=== PATIENT | female | born 1970 | race Caucasian/White ===

== ENCOUNTER 2017-01-02 11:22 | Outpatient (CLI) | payer BC | END 2017-01-02 11:23 | disposition home or self-care (01) | DX: Z79.899 Other long term (current) drug therapy (principal) ==

== ENCOUNTER 2017-07-21 15:47 | Outpatient (CLI) | payer BC ==
[2017-07-22 11:12] LABS: PROGESTERONE <0.5 ng/mL
== END 2017-07-21 15:48 | disposition home or self-care (01) ==
LOC: LAB.WCP 15:47
PROVIDERS: ATTEND Physician Assistant Medical
DX: Z78.0 Asymptomatic menopausal state (principal)
CPT/HCPCS: 36415; 82670; 83001; 84144

== ENCOUNTER 2017-12-28 09:52 | Outpatient (CLI) | payer OTHER | END 2017-12-28 09:53 | disposition home or self-care (01) | LOC: SC 09:52 | PROVIDERS: ATTEND Internal Medicine Pulmonary Disease | DX: G47.33 Obstructive sleep apnea (adult) (pediatric) (principal); E66.01 Morbid (severe) obesity due to excess calories; Z68.43 Body mass index [BMI] 50.0-59.9, adult | CPT/HCPCS: 99203; 99212 ==

== ENCOUNTER 2018-01-18 08:00 | Outpatient (CLI) | payer OTHER | END 2018-01-18 23:59 | LOC: LAB.WCP 08:00 | PROVIDERS: ATTEND Physician Assistant Medical | DX: N39.0 Urinary tract infection, site not specified (principal) | CPT/HCPCS: 87086 ==

== ENCOUNTER 2018-01-28 12:20 | Outpatient (CLI) | payer OTHER ==
[2018-01-28 19:20] LABS: BILIRUBIN,URINE NEGATIVE (NEGATIVE); GLUCOSE, URINE (UA) NEGATIVE (NEGATIVE); KETONES,URINE (UA) NEGATIVE (NEGATIVE); LEUKOCYTE ESTERASE, URINE SMALL (NEGATIVE); NITRITE,URINE NEGATIVE (NEGATIVE); OCCULT BLOOD,URINE NEGATIVE (NEGATIVE); PROTEIN,URINE NEGATIVE (NEGATIVE); UROBILINOGEN,URINE 0.2 (NORMAL) E.U./dL (NORMAL)
[2018-01-28 19:47] LABS: CLARITY,URINE CLEAR (CLEAR)
[2018-01-28 19:48] LABS: BACTERIA,URINE Many /HPF (None Seen); RBC,URINE 3 /HPF (0-5); SQUAMOUS EPITHELIAL CELL,UR MANY Squamous (<= Few)
== END 2018-01-28 12:21 | disposition home or self-care (01) ==
LOC: LAB.WCP 12:20
PROVIDERS: ATTEND Physician Assistant Medical
DX: N39.0 Urinary tract infection, site not specified (principal)
CPT/HCPCS: 81001; 87086

== ENCOUNTER 2018-02-09 11:00 | Outpatient (CLI) | payer OTHER | END 2018-02-09 11:01 | disposition home or self-care (01) | LOC: SC 11:00 | PROVIDERS: ATTEND Nurse Practitioner Family | DX: G47.33 Obstructive sleep apnea (adult) (pediatric) (principal); F32.9 Major depressive disorder, single episode, unspecified | CPT/HCPCS: 99214 ==

== ENCOUNTER 2018-02-10 14:05 | Outpatient (CLI) | payer OTHER | END 2018-02-10 14:06 | disposition home or self-care (01) | LOC: LAB.WCP 14:05 | PROVIDERS: ATTEND Family Medicine | DX: N39.0 Urinary tract infection, site not specified (principal) | CPT/HCPCS: 87086 ==

== ENCOUNTER 2018-02-15 08:45 | Outpatient (CLI) | payer OTHER ==
[2018-02-15 09:23] LABS: BASOPHILS % (AUTO) 0.3 %; EOSINOPHILS # (AUTO) 0.1 10^3/uL (0.0-0.7); EOSINOPHILS % (AUTO) 2.8 %; HGB - HEMOGLOBIN 13.6 g/dL (12.0-16.0); LYMPHOCYTES # (AUTO) 0.7 10^3/uL (1.5-3.5); LYMPHOCYTES % (AUTO) 13.6 %; MEAN CORPUSCULAR HEMOGLOBIN 32.5 pg (27.0-31.0); MEAN CORPUSCULAR HGB CONC 34.8 g/dL (32.0-36.0); MEAN CORPUSCULAR VOLUME 93.3 fL (81.0-99.0); MEAN PLATELET VOLUME 7.6 fL (7.9-10.8); MONOCYTES # (AUTO) 0.5 10^3/uL (0.0-1.0); MONOCYTES % (AUTO) 10.1 %; NEUTROPHILS # (AUTO) 3.7 10^3/uL (1.5-6.6); NEUTROPHILS % (AUTO) 73.2 %; PLT - PLATELET COUNT 197 10^3/uL (130-450); RED BLOOD COUNT 4.19 10^6/uL (4.20-5.40); RED CELL DISTRIBUTION WIDTH 12.7 % (12.0-15.0); WHITE BLOOD COUNT 5.1 x10^3/uL (4.8-10.8)
[2018-02-15 09:44] LABS: ALBUMIN 4.2 g/dL (3.2-5.5); ALBUMIN/GLOBULIN RATIO 1.3 (1.0-2.2); ALKALINE PHOSPHATASE 66 IU/L (42-121); ALT ALANINE AMINOTRANSFERASE 33 IU/L (10-60); AST ASPARTATE AMINOTRANSFERASE 22 IU/L (10-42); BILIRUBIN,TOTAL 0.9 mg/dL (0.2-1.0); BUN - BLOOD UREA NITROGEN 13 mg/dL (6-20); CALCIUM 8.8 mg/dL (8.5-10.3); CARBON DIOXIDE - CO2 22 mmol/L (21-32); CHLORIDE 102 mmol/L (101-111); CHOL/HDL RATIO 5.5 (<4.4); CHOLESTEROL 176 mg/dL; CREATININE 0.9 mg/dL (0.4-1.0); GFR - MDRD 67 (>89); GLUCOSE 128 mg/dL (70-100); HB2 TOTAL 14.9 g/dL; HDL CHOLESTEROL 32 mg/dL; HEMOGLOBIN A1C 0.62 g/dL; LDL CHOLESTEROL,CALCULATED 109 mg/dL; LDL/HDL RATIO 3.4 (<4.4); SODIUM 134 mmol/L (135-145); TOTAL PROTEIN 7.5 g/dL (6.7-8.2); VLDL CHOLESTEROL 35 mg/dL
[2018-02-15 09:54] LABS: THYROID STIMULATING HORMONE 2.96 uIU/mL (0.34-5.60)
[2018-02-15 09:56] LABS: FREE T4 (FREE THYROXINE) 0.69 ng/dL (0.58-1.64)
[2018-02-15 10:20] LABS: LITHIUM 0.34 mmol/L
== END 2018-02-15 08:46 | disposition home or self-care (01) ==
LOC: LAB 08:45
PROVIDERS: ATTEND Psychiatry & Neurology Psychiatry
DX: Z79.899 Other long term (current) drug therapy (principal)
CPT/HCPCS: 36415; 80053; 80061; 80178; 82607; 82728; 83036; 83721; 84439; 84443; 85025

== ENCOUNTER 2018-02-15 09:55 | Outpatient (CLI) | payer OTHER | END 2018-02-15 09:56 | disposition home or self-care (01) | LOC: LAB.WCP 09:55 | PROVIDERS: ATTEND Physician Assistant Medical | DX: N39.0 Urinary tract infection, site not specified (principal) | CPT/HCPCS: 87086 ==

== ENCOUNTER 2018-02-15 13:25 | Outpatient (CLI) | payer OTHER ==
[2018-02-15] MEDS ORDERED: IOPAMIDOL-300 50 ML VIAL ONE (13:50)
[2018-02-15] MEDS ORDERED: IOPAMIDOL-300 100 ML VIAL ONE (13:51)
[2018-02-15] MEDS ORDERED: IOPAMIDOL-300 100 ML VIAL IVP ONE (17:18)
[2018-02-15] MEDS ORDERED: IOPAMIDOL-300 50 ML VIAL PO ONE (17:18)
--- NOTE | 2018-02-15 17:25 | CT Report ---
CT ABDOMEN AND PELVIS WITH CONTRAST: 02/15/2018 CLINICAL INDICATION: Right lower quadrant pain. TECHNIQUE: Axial CT images of the abdomen and pelvis were obtained with 100 mL Isovue 300 intravenously as well as oral contrast. In accordance with CT protocol optimization, one or more of the following dose reduction techniques were utilized for this exam: Automated exposure control, adjustment of mA and/or KV based on patient size, or use of iterative reconstructive technique. FINDINGS: Limited evaluation of the lung bases is unremarkable. ABDOMEN: The liver demonstrates diffuse decrease in attenuation, compatible with fatty infiltration. The gallbladder is not dilated. The spleen, pancreas, kidneys and adrenal glands are unremarkable. No bowel dilatation, free gas, or free fluid is present. No abdominal adenopathy is seen. PELVIS: The appendix is seen in the right lower quadrant, and is normal in caliber. The pelvic organs appear unremarkable. No pelvic adenopathy or free fluid is present. Osseous structures are unremarkable. IMPRESSION: FATTY INFILTRATION OF THE LIVER. NORMAL APPENDIX. TD: 02/15/2018 15:10
== END 2018-02-15 13:26 | disposition home or self-care (01) ==
LOC: DI 13:25
PROVIDERS: ATTEND Physician Assistant Medical
DX: R10.31 Right lower quadrant pain (principal); K76.0 Fatty (change of) liver, not elsewhere classified; N39.0 Urinary tract infection, site not specified; Z79.899 Other long term (current) drug therapy
CPT/HCPCS: 36415; 74177; 80053; 80061; 80178; 82607; 82728; 83036; 84439; 84443; 85025; 87086; Q9967; 83721

== ENCOUNTER 2018-06-14 08:00 | Outpatient (CLI) | payer OTHER ==
[2018-06-14 19:23] LABS: ALBUMIN 4.4 g/dL (3.2-5.5); ALBUMIN/GLOBULIN RATIO 1.5 (1.0-2.2); BILIRUBIN,TOTAL 0.7 mg/dL (0.2-1.0); CALCIUM 9.5 mg/dL (8.5-10.3); CREATININE 0.8 mg/dL (0.4-1.0); TOTAL PROTEIN 7.4 g/dL (6.7-8.2)
[2018-06-14 20:05] LABS: HB2 TOTAL 14.5 g/dL; HEMOGLOBIN A1C 0.58 g/dL; HEMOGLOBIN A1C % 5.8 % (4.6-6.2)
== END 2018-06-14 08:01 | disposition home or self-care (01) ==
LOC: LAB.WCP 08:00
PROVIDERS: ATTEND Physician Assistant Medical
DX: R73.9 Hyperglycemia, unspecified (principal)
CPT/HCPCS: 36415; 80053; 83036

== ENCOUNTER 2019-01-18 08:00 | Outpatient (CLI) | payer OTHER ==
[2019-01-18 19:16] LABS: BASOPHILS % (AUTO) 0.3 %; EOSINOPHILS # (AUTO) 0.2 10^3/uL (0.0-0.7); EOSINOPHILS % (AUTO) 3.4 %; LYMPHOCYTES # (AUTO) 1.8 10^3/uL (1.5-3.5); LYMPHOCYTES % (AUTO) 30.9 %; MEAN CORPUSCULAR HEMOGLOBIN 32.2 pg (27.0-31.0); MEAN CORPUSCULAR HGB CONC 33.4 g/dL (32.0-36.0); MEAN CORPUSCULAR VOLUME 96.4 fL (81.0-99.0); MEAN PLATELET VOLUME 8.3 fL (7.9-10.8); MONOCYTES # (AUTO) 0.5 10^3/uL (0.0-1.0); MONOCYTES % (AUTO) 8.5 %; NEUTROPHILS # (AUTO) 3.3 10^3/uL (1.5-6.6); NEUTROPHILS % (AUTO) 56.9 %; PLT - PLATELET COUNT 218 10^3/uL (130-450); RED BLOOD COUNT 4.03 10^6/uL (4.20-5.40); RED CELL DISTRIBUTION WIDTH 12.6 % (12.0-15.0); WHITE BLOOD COUNT 5.9 x10^3/uL (4.8-10.8)
[2019-01-18 19:36] LABS: LITHIUM 0.32 mmol/L
[2019-01-18 19:47] LABS: ALBUMIN/GLOBULIN RATIO 1.2 (1.0-2.2); ALKALINE PHOSPHATASE 59 IU/L (42-121); ALT ALANINE AMINOTRANSFERASE 30 IU/L (10-60); AST ASPARTATE AMINOTRANSFERASE 26 IU/L (10-42); BILIRUBIN,TOTAL 0.5 mg/dL (0.2-1.0); BUN - BLOOD UREA NITROGEN 18 mg/dL (6-20); CALCIUM 9.1 mg/dL (8.5-10.3); CARBON DIOXIDE - CO2 25 mmol/L (21-32); CHLORIDE 107 mmol/L (101-111); CHOLESTEROL 194 mg/dL; CREATININE 0.8 mg/dL (0.4-1.0); GFR - MDRD 76 (>89); GLUCOSE 142 mg/dL (70-100); HDL CHOLESTEROL 39 mg/dL; LDL CHOLESTEROL,CALCULATED 90 mg/dL; LDL/HDL RATIO 2.3 (<4.4); SODIUM 141 mmol/L (135-145); TOTAL PROTEIN 7.3 g/dL (6.7-8.2); VLDL CHOLESTEROL 65 mg/dL
[2019-01-18 19:57] LABS: THYROID STIMULATING HORMONE 1.74 uIU/mL (0.34-5.60)
[2019-01-18 19:58] LABS: FREE T4 (FREE THYROXINE) 0.78 ng/dL (0.58-1.64)
[2019-01-18 20:03] LABS: FERRITIN 79.1 ng/mL (11.0-306.8)
[2019-01-18 20:11] LABS: HB2 TOTAL 13.6 g/dL; HEMOGLOBIN A1C 0.68 g/dL; HEMOGLOBIN A1C % 6.7 % (4.6-6.2)
== END 2019-01-18 08:01 | disposition home or self-care (01) ==
LOC: LAB.WCP 08:00
PROVIDERS: ATTEND Psychiatry & Neurology Psychiatry
DX: Z98.84 Bariatric surgery status (principal); Z94.84 Stem cells transplant status; Z79.899 Other long term (current) drug therapy
CPT/HCPCS: 36415; 80053; 80061; 80178; 82607; 82728; 83036; 83721; 84439; 84443; 85025

== ENCOUNTER 2019-01-21 08:00 | Outpatient (CLI) | payer OTHER | END 2019-01-21 23:59 | disposition home or self-care (01) | LOC: LAB.N 08:00 | DX: M10.00 Idiopathic gout, unspecified site (principal) | CPT/HCPCS: 36415; 84550 ==

== ENCOUNTER 2019-02-01 08:00 | Outpatient (CLI) | payer OTHER | END 2019-02-01 23:59 | disposition home or self-care (01) | LOC: LAB.WCP 08:00 | PROVIDERS: ATTEND Physician Assistant Medical | DX: R06.00 Dyspnea, unspecified (principal) | CPT/HCPCS: 36415; 85379 ==

== ENCOUNTER 2019-02-02 10:04 | Emergency (ER) | payer OTHER ==
[2019-02-02 10:49] LABS: BASOPHILS % (AUTO) 0.3 %; EOSINOPHILS # (AUTO) 0.2 10^3/uL (0.0-0.7); EOSINOPHILS % (AUTO) 1.6 %; HGB - HEMOGLOBIN 11.9 g/dL (12.0-16.0); LYMPHOCYTES # (AUTO) 1.8 10^3/uL (1.5-3.5); LYMPHOCYTES % (AUTO) 17.3 %; MEAN CORPUSCULAR VOLUME 94.1 fL (81.0-99.0); MONOCYTES # (AUTO) 1.1 10^3/uL (0.0-1.0); NEUTROPHILS # (AUTO) 7.5 10^3/uL (1.5-6.6); NEUTROPHILS % (AUTO) 70.8 %; PLT - PLATELET COUNT 219 10^3/uL (130-450); RED BLOOD COUNT 3.71 10^6/uL (4.20-5.40); RED CELL DISTRIBUTION WIDTH 12.4 % (12.0-15.0); WHITE BLOOD COUNT 10.6 x10^3/uL (4.8-10.8)
[2019-02-02 11:04] LABS: ALBUMIN 3.7 g/dL (3.2-5.5); BILIRUBIN,TOTAL 0.8 mg/dL (0.2-1.0); CALCIUM 9.3 mg/dL (8.5-10.3); CREATININE 0.8 mg/dL (0.4-1.0); TOTAL PROTEIN 7.4 g/dL (6.7-8.2)
--- NOTE | 2019-02-02 11:19 | XRAY Report ---
Reason: chest pain Procedure Date: 02/02/2019 Accession Number: [id number] / [id number] Procedure: XR - Chest 1 View X-Ray CPT Code: 39109 FULL RESULT: EXAM: CHEST RADIOGRAPHY EXAM DATE: 02/02/2019 10:59 AM. CLINICAL HISTORY: Chest pain. COMPARISON: CHEST 2 VIEW PA/LAT 09/03/2016 11:00 AM. TECHNIQUE: 1 view. FINDINGS: Lungs/Pleura: No focal opacities evident. No pleural effusion. No pneumothorax. Mediastinum: Given limitations of AP portable technique the cardiomediastinal silhouette is likely unchanged. Other: None. IMPRESSION: Limited examination with no acute cardiopulmonary abnormality detected. Apparent cardiomegaly is felt to be due to AP technique. RADIA
--- NOTE | 2019-02-02 12:25 | ED Physician Documentation ---
PD HPI CHEST PAIN - Stated complaint Stated Complaint: BACK/SHOULDER PX - Chief complaint Chief Complaint: Cardiac - History obtained from History obtained from: Patient - History of Present Illness Timing - onset: How many days ago (3) Timing - onset during: Rest Timing - duration: Days (3) Timing - details: Abrupt onset, Now resolved Quality: Pressure, Sharp, Throbbing Location: Substernal, Left chest Radiation: Back Improved by: Rest Worsened by: Inspiration Associated symptoms: Shortness of air, Other (felt that her lungs might explode if she took too deep of a breath.). No: Diaphoresis, Nausea, Vomiting, Feeling faint / dizzy, General Weakness, Palpitations, Cough Recently seen: Clinic - Additional information Additional information: 48-year-old female reports that 2 nights ago she was in bed asleep had a pain in her chest or in her back on the left side around the rhomboid area and down in the lower back and she felt that her lungs might explode if she took a deep breath. She states she was not able to take a deep breath secondary to pain. These pains resolved and she relates that they lasted about 5 to 6 minutes at a time when it happened. She subsequently had resolution of her pain she went into see her doctor she had a d-dimer done which was negative and she has had recurrence of the pain again last night and she had 3 episodes this time substernal. Again episodes lasting 5 to 6 minutes. She gives a hears history of travel to [place] about 1 month ago. She also gives history that she had a elevated resting heart rate yesterday. Review of Systems Constitutional: denies: Fever Eyes: denies: Decreased vision Ears: denies: Ear pain Nose: denies: Congestion Throat: denies: Sore throat Cardiac: reports: Chest pain / pressure. denies: Palpitations, Pedal edema, Calf pain Respiratory: reports: Dyspnea. denies: Cough, Wheezing GI: denies: Abdominal Pain, Nausea, Vomiting : denies: Dysuria, Frequency PD PAST MEDICAL HISTORY - Past Medical History Past Medical History: Yes Endocrine/Autoimmune: Type 2 diabetes FAMILY PRACTICE MEDICAL DOCTOR: Other Psych: Depression Other Past Medical History: pcos - Past Surgical History Past Surgical History: Yes Ortho: Knee replacement /FAMILY PRACTICE MEDICAL DOCTOR: Endometrial ablation, Dilation and currettage - Present Medications Home Medications: Ambulatory Orders Medication Instructions Recorded Confirmed Levothyroxine [Synthroid] 50 mcg PO DAILY 06/25/14 05/08/19 lamoTRIgine [Lamictal] 200 mg PO DAILY 03/22/14 02/02/19 Venlafaxine HCl [Effexor Xr] 300 mg PO DAILY 03/24/14 02/02/19 traZODone [Desyrel] 200 mg PO QPM 03/24/14 02/02/19 Aripiprazole [Abilify] 2 mg PO DAILY 02/02/19 02/02/19 Azithromycin [Zithromax] 250 mg PO DAILY #6 tablet 02/02/19 Colchicine 0.6 mg PO DAILY 02/02/19 02/02/19 Indomethacin [Indocin] 25 mg PO DAILY 02/02/19 02/02/19 Metformin HCl 1,000 mg PO BID 02/02/19 02/02/19 Nitrofurantoin Monohyd/M-Cryst 100 mg PO DAILY 02/02/19 02/02/19 [Macrobid 100 mg Capsule] Prazosin HCl 1 tab PO DAILY 02/02/19 02/02/19 Prazosin HCl 1 tab PO DAILY PM 02/02/19 02/02/19 - Allergies Allergies/Adverse Reactions: Allergies Allergy/AdvReac Type Severity Reaction Status Date / Time Penicillins Allergy Severe Respiratory Verified 02/02/19 10:16 shrimp Allergy Hives Verified 02/02/19 10:33 strawberry Allergy Rash Verified 02/02/19 10:33 montelukast sodium * AdvReac Mild other Verified 02/02/19 10:16 [From [facility]] - Social History Does the pt smoke?: No Smoking Status: Never smoker Does the pt drink ETOH?: No Does the pt have substance abuse?: No - Immunizations Immunizations are current?: Yes - POLST Patient has POLST: No PD ED PE NORMAL - Vitals Vital signs reviewed: Yes (hypertensive ) - General General: Alert and oriented X 3, No acute distress, Well developed/nourished - HEENT HEENT: Atraumatic, PERRL, EOMI - Neck Neck: Supple, no meningeal sign - Cardiac Cardiac: RRR, No murmur - Respiratory Respiratory: No respiratory distress, Clear bilaterally, Other (no chest wall tenderness) - Abdomen Abdomen: Soft, Non tender - Back Back: No CVA TTP, No spinal TTP - Derm Derm: Normal color, Warm and dry, No rash - Extremities Extremities: No deformity, No edema - Neuro Neuro: Alert and oriented X 3, remote sensing analyst 2-12 intact, No motor deficit, No sensory deficit, Normal speech Eye Opening: Spontaneous Motor: Obeys Commands Verbal: Oriented GCS Score: 15 - Psych Psych: Normal mood, Normal affect Results - Vitals Vitals: Vital Signs - 24 hr 02/02/19 02/02/19 02/02/19 10:13 10:43 11:24 Temperature 36.4 C L Heart Rate 90 77 77 Respiratory 14 14 12 Rate Blood Pressure 140/80 H 135/77 H 148/84 H O2 Saturation 96 95 96 Oxygen O2 Source Room air - EKG (time done) 1026 Rate: Rate (enter#) (75) Ischemia: Normal ST segments Other comments: Other comments (early transition) Compare to prior EKG: Old EKG unavailable Computer interpretation: Agree with computer - Labs Labs: Laboratory Tests 02/02/19 02/02/19 02/02/19 10:35 10:35 10:35 WBC 10.6 RBC 3.71 L Hgb 11.9 L Hct 34.9 L MCV 94.1 MCH 32.0 H MCHC 34.0 RDW 12.4 Plt Count 219 MPV 8.0 Neut # (Auto) 7.5 H Lymph # (Auto) 1.8 [place] # (Auto) 1.1 H Eos # (Auto) 0.2 Baso # (Auto) 0.0 Absolute Nucleated RBC 0.00 Nucleated RBC % 0.0 Sodium 137 Potassium 3.8 Chloride 101 Carbon Dioxide 24 Anion Gap 12.0 BUN 16 Creatinine 0.8 Estimated GFR (MDRD) 76 L Glucose 221 H Calcium 9.3 Total Bilirubin 0.8 AST 25 ALT 34 Alkaline Phosphatase 75 Troponin I < 0.04 Total Protein 7.4 Albumin 3.7 Globulin 3.7 Albumin/Globulin Ratio 1.0 Lipase 22 - Rads (name of study) chest Radiology: Prelim report reviewed (Impression: Limited examination with no acute cardiopulmonary abnormality detected apparent cardiomegaly is felt to be due to AP technique), EMP read indepedently, See rad report pulmonary angiogram Radiology: Prelim report reviewed (Impression: Consolidation in the left upper lobe. No pulmonary and was not.), EMP read indepedently, See rad report Procedures - IVC sono (time) 1220 Bedside IVC sono: IVC measures (cm) (2.04), Euvolemia PD MEDICAL DECISION MAKING - ED course Complexity details: reviewed results, re-evaluated patient, considered differential, d/w patient ED course: 48-year-old female with intermittent chest pain has a dense infiltrate on CT examination of the chest. She is administered Rocephin a gram IV. Departure - Departure Disposition: 01 Home, Self Care Clinical Impression: Pneumonia Qualifiers: Pneumonia type: due to unspecified organism Laterality: left Lung location: upper lobe of lung Qualified Code(s): J18.1 - Lobar pneumonia, unspecified organism Condition: Stable Instructions: ED Pneumonia Adult Follow-Up: Nancy Suarez PA-C [Primary Care Provider] - Prescriptions: Azithromycin [Zithromax] 250 mg PO DAILY #6 tablet Forms: Activity restrictions
[2019-02-02] MEDS ORDERED: IOVERSOL 320 100 ML VIAL IVP ONE ×2 (13:08→14:10)
--- NOTE | 2019-02-02 13:55 | CT Report ---
Reason: dyspnea, chest pain tachy Procedure Date: 02/02/2019 Accession Number: [id number] / [id number] Procedure: CT - ANGIO CHEST W/WO CPT Code: FULL RESULT: EXAM: CT ANGIOGRAM CHEST EXAM DATE: 02/02/2019 01:27 PM. CLINICAL HISTORY: Dyspnea, chest pain, tachycardia. COMPARISON: None. TECHNIQUE: Routine helical imaging was performed through the chest in the pulmonary arterial phase. IV Contrast: ISOVUE 300 80mL. Reconstructions: Coronal 3-D MIP reconstructions.Sagittal and coronal. In accordance with CT protocol optimization, one or more of the following dose reduction techniques were utilized for this exam: automated exposure control, adjustment of mA and/or KV based on patient size, or use of iterative reconstructive technique. FINDINGS: Pulmonary Arteries: Diagnostic quality: Adequate through the segmental arteries. No evidence for acute or chronic pulmonary emboli. RV/LV is within normal limits. There is no interventricular septal bowing. There is no reflux of contrast material in the IVC. Lungs/Pleura: There is consolidation in the posterior segment of the left upper lobe. Remaining lungs are clear. No pleural effusion or pneumothorax. Mediastinum: Normal. No cardiac enlargement or adenopathy. Thoracic Aorta: Unremarkable. Upper Abdomen: Status post gastric surgery. Splenomegaly. Other: None. IMPRESSION: Consolidation in the left upper lobe. No pulmonary embolism. RADIA
[2019-02-02] MEDS ORDERED: cefTRIAXone 1 GM in SODIUM CHLORIDE 0.9% MINIBAG 100 ML IV STA (14:27)
[2019-02-02 15:18] VITALS: BP 118/80
== END 2019-02-02 15:28 | disposition home or self-care (01) ==
LOC: ED 10:04
DX: J18.1 Lobar pneumonia, unspecified organism (principal); E11.9 Type 2 diabetes mellitus without complications; Z79.84 Long term (current) use of oral hypoglycemic drugs
CPT/HCPCS: 36415; 71045; 71275; 80053; 83690; 84484; 85025; 93005; 96365; 99284; Q9967

== ENCOUNTER 2019-03-01 17:55 | Outpatient (CLI) | payer OTHER ==
--- NOTE | 2019-03-02 10:59 | XRAY Report ---
Reason: PHEUMONIA Procedure Date: 03/01/2019 Accession Number: [id number] / [id number] Procedure: XR - Chest 2 View X-Ray CPT Code: 56078 FULL RESULT: EXAM: CHEST RADIOGRAPHY EXAM DATE: 03/01/2019 06:06 PM. CLINICAL HISTORY: Pneumonia. COMPARISON: CHEST 1 VIEW 02/02/2019 10:46 AM. CHEST ANGIO 02/02/2019 1:18 PM. TECHNIQUE: 2 views. FINDINGS: Lungs/Pleura: Interval decrease in opacities in the left lingular distribution, near resolution. No new airspace disease is detected. No sizable pleural effusion or pneumothorax. Mediastinum: Heart and mediastinal contours are unremarkable. Other: None. IMPRESSION: Interval improvement in previously seen airspace disease. RADIA
== END 2019-03-01 17:56 | disposition home or self-care (01) ==
LOC: DI 17:55
PROVIDERS: ATTEND Physician Assistant Medical
DX: J18.9 Pneumonia, unspecified organism (principal)
CPT/HCPCS: 71046

== ENCOUNTER 2019-04-27 11:42 | Outpatient (CLI) | payer OTHER ==
[2019-04-27 19:04] LABS: ALBUMIN/GLOBULIN RATIO 1.4 (1.0-2.2); ALKALINE PHOSPHATASE 58 IU/L (42-121); ALT ALANINE AMINOTRANSFERASE 24 IU/L (10-60); AST ASPARTATE AMINOTRANSFERASE 19 IU/L (10-42); BILIRUBIN,TOTAL 0.6 mg/dL (0.2-1.0); BUN - BLOOD UREA NITROGEN 10 mg/dL (6-20); CALCIUM 9.6 mg/dL (8.5-10.3); CARBON DIOXIDE - CO2 25 mmol/L (21-32); CHLORIDE 105 mmol/L (101-111); CHOL/HDL RATIO 4.5 (<4.4); CHOLESTEROL 193 mg/dL; CREATININE 0.8 mg/dL (0.4-1.0); GFR - MDRD 76 (>89); GLUCOSE 110 mg/dL (70-100); HDL CHOLESTEROL 43 mg/dL; LDL CHOLESTEROL,CALCULATED 109 mg/dL; LDL/HDL RATIO 2.5 (<4.4); SODIUM 141 mmol/L (135-145); TOTAL PROTEIN 6.9 g/dL (6.7-8.2); VLDL CHOLESTEROL 41 mg/dL
[2019-04-27 19:07] LABS: HB2 TOTAL 13.1 g/dL; HEMOGLOBIN A1C 0.65 g/dL; HEMOGLOBIN A1C % 6.7 % (4.6-6.2)
== END 2019-04-27 11:43 | disposition home or self-care (01) ==
LOC: LAB.WCP 11:42
PROVIDERS: ATTEND Physician Assistant Medical
DX: E11.9 Type 2 diabetes mellitus without complications (principal)
CPT/HCPCS: 36415; 80053; 80061; 83036; 83721

== ENCOUNTER 2019-07-27 08:00 | Outpatient (CLI) | payer OTHER ==
[2019-07-27 13:20] LABS: ALBUMIN 4.3 g/dL (3.2-5.5); ALBUMIN/GLOBULIN RATIO 1.4 (1.0-2.2); ALKALINE PHOSPHATASE 62 IU/L (42-121); ALT ALANINE AMINOTRANSFERASE 25 IU/L (10-60); AST ASPARTATE AMINOTRANSFERASE 21 IU/L (10-42); BILIRUBIN,TOTAL 0.9 mg/dL (0.2-1.0); BUN - BLOOD UREA NITROGEN 15 mg/dL (6-20); CALCIUM 9.4 mg/dL (8.5-10.3); CARBON DIOXIDE - CO2 29 mmol/L (21-32); CHLORIDE 102 mmol/L (101-111); CHOL/HDL RATIO 5.4 (<4.4); CHOLESTEROL 227 mg/dL; CREATININE 0.8 mg/dL (0.4-1.0); GFR - MDRD 76 (>89); GLUCOSE 218 mg/dL (70-100); HDL CHOLESTEROL 42 mg/dL; SODIUM 138 mmol/L (135-145); TOTAL PROTEIN 7.3 g/dL (6.7-8.2)
[2019-07-27 13:39] LABS: HB2 TOTAL 14.5 g/dL; HEMOGLOBIN A1C 0.91 g/dL; HEMOGLOBIN A1C % 7.9 % (4.6-6.2)
[2019-07-27 13:47] LABS: LDL CHOLESTEROL,DIRECT 128 mg/dL
== END 2019-07-27 23:59 | disposition home or self-care (01) ==
LOC: LAB.WCP 08:00
PROVIDERS: ATTEND Physician Assistant Medical
DX: E11.9 Type 2 diabetes mellitus without complications (principal); M10.9 Gout, unspecified
CPT/HCPCS: 36415; 80053; 80061; 83036; 83721; 84550

== ENCOUNTER 2019-10-25 12:08 | Outpatient (CLI) | payer OTHER ==
[2019-10-25 18:59] LABS: BASOPHILS % (AUTO) 0.5 %; EOSINOPHILS # (AUTO) 0.1 10^3/uL (0.0-0.7); EOSINOPHILS % (AUTO) 1.8 %; HGB - HEMOGLOBIN 13.9 g/dL (12.0-16.0); LYMPHOCYTES # (AUTO) 1.8 10^3/uL (1.5-3.5); LYMPHOCYTES % (AUTO) 23.4 %; MEAN CORPUSCULAR HEMOGLOBIN 31.9 pg (27.0-31.0); MEAN CORPUSCULAR HGB CONC 32.8 g/dL (32.0-36.0); MEAN CORPUSCULAR VOLUME 97.2 fL (81.0-99.0); MEAN PLATELET VOLUME 9.9 fL (7.9-10.8); MONOCYTES # (AUTO) 0.6 10^3/uL (0.0-1.0); MONOCYTES % (AUTO) 7.8 %; NEUTROPHILS # (AUTO) 5.2 10^3/uL (1.5-6.6); NEUTROPHILS % (AUTO) 66.1 %; PLT - PLATELET COUNT 278 10^3/uL (130-450); RED BLOOD COUNT 4.36 10^6/uL (4.20-5.40); WHITE BLOOD COUNT 7.8 x10^3/uL (4.8-10.8)
[2019-10-25 19:36] LABS: FERRITIN 74.3 ng/mL (11.0-306.8)
== END 2019-10-25 23:59 | disposition home or self-care (01) ==
LOC: LAB.WCP 12:08
PROVIDERS: ATTEND Physician Assistant Medical
DX: R53.82 Chronic fatigue, unspecified (principal)
CPT/HCPCS: 36415; 82306; 82607; 82728; 84443; 84481; 85025

== ENCOUNTER 2019-11-01 08:00 | Outpatient (CLI) | payer OTHER ==
[2019-11-01 19:05] LABS: HB2 TOTAL 13.4 g/dL; HEMOGLOBIN A1C 0.66 g/dL; HEMOGLOBIN A1C % 6.7 % (4.6-6.2)
[2019-11-01 19:14] LABS: BUN - BLOOD UREA NITROGEN 16 mg/dL (6-20); CALCIUM 9.3 mg/dL (8.5-10.3); CARBON DIOXIDE - CO2 26 mmol/L (21-32); CHLORIDE 104 mmol/L (101-111); CHOL/HDL RATIO 6.2 (<4.4); CHOLESTEROL 229 mg/dL; CREATININE 0.8 mg/dL (0.4-1.0); GFR - MDRD 76 (>89); GLUCOSE 156 mg/dL (70-100); HDL CHOLESTEROL 37 mg/dL; LDL CHOLESTEROL,CALCULATED 128 mg/dL; LDL/HDL RATIO 3.5 (<4.4); SODIUM 140 mmol/L (135-145); VLDL CHOLESTEROL 64 mg/dL
== END 2019-11-01 23:59 | disposition home or self-care (01) ==
LOC: LAB.WCP 08:00
PROVIDERS: ATTEND Physician Assistant Medical
DX: E11.9 Type 2 diabetes mellitus without complications (principal)
CPT/HCPCS: 36415; 80048; 80061; 83036; 83721

== ENCOUNTER 2019-11-22 13:12 | Outpatient (CLI) | payer OTHER ==
[2019-11-22 14:18] VITALS: BP 120/74
--- NOTE | 2019-11-22 14:18 | SLEEP CARE CONSULTATION ---
Information from patient questionnaire entered by Georgette Vieira. I have reviewed and concur with the information entered by Georgette Vieira. This document represents the service I personally performed and the decisions made by me, Catherine Sawyer RN, MSN, [employer]. History of Present Illness Previous diagnosis: Mild, Obstructive Sleep Apnea-Hypopnea Syndrome AHI: 9.5 Reason for follow up: annual Equipment type: CPAP Equipment obtained from: [employer] Mask style: Full face Backup mask available: Yes Last cushion change: 6 weeks Prior sleep studies: Yes CPAP Compliance Data - Data Reviewed with Patient Average duration of nightly device use: 7h 37m Compliance rate %: 93 Current pressure setting (cmH2O): 6-12 Average residual AHI: 1.0 Average large leak: 11.2 liters per minute Subjective Patient concerns: denies: aerophagia, mask discomfort, air blowing in eyes, mask leak noise, condensation in mask/hose, nasal congestion, dry mouth, nose, throat, epistaxis, other Observed to snore while using device: No Current pressure setting perceived as: comfortable On therapy, patient: denies: awakening more refreshed (no difference ), being more awake and alert during the day, more rested overall, drowsiness while driving, other Initial [place] Sleepiness Scale score: 4 Current [place] Sleepiness Scale score: 3 Allergies and Home Medications Known drug allergies: Yes (see list ) Home medication list reviewed: Yes (see changes ) Allergy and home medication list: Medication Name (generic/name brand) Strength & Dosage Effexor XR 150mg cap two daily Synthroid 50mcg tab one and one half daily Lamictal 200mg tab one daily at bedtime Trazodone HCL 150mg tab one daily at bedtime Abilify 7.5mg tab one and one half daily Epipen 2-Jarocho 0.3MG/0.3ML Use as needed for allergic reaction Metformin HCL 500mg tab two twice daily [place] Carbonate 300mg cap one twice daily Ventolin HFA 108 (90 base) MCG/ACT Inhale two actuations q4h PRN wheeze Prazosin HCL 8mg tab one daily [place] 3 daily Ritalin 20mg bid po. Review of Systems Review of systems same as previous: No (new diagnosis of diabetes and elevated cholesterol ) Physical Exam Blood Pressure: 120/74 Cuff size: long Heart Rate: 96 O2 Saturation: 97 Height: 5 ft 4 in Weight: 282 lb Weight change since last visit: lost 12 pounds Body Mass Index: 48.4 BMI Classification: Morbidly Obese Impression and Plan 1. Obstructive Sleep Apnea-Hypopnea Syndrome, mild , with good treatment compliance and good apnea control. On CPAP therapy, the patient has noted no change. To reduce mask leaks, she is advised to change mask cushion more frequently. Mask leaks predominately from when patient sleeps on their side can be reduced by using a CPAP pillow. A CPAP pillow sample was shown. This and other styles can be purchased online.Patient has lost weight and was praised for her effort. Currently patients is morbidly obese and her BMI is 48.4. She has seen a pie cutter and taking pre diabetes class and modifying diet. She is also exercising and considering water aerobics. I counseled how obesity increases the risk of apnea, CPAP pressure requirements and overall health risks especially cardiovascular and diabetes. Thus patient is advised to continue to lose weight. The BMI chart was reviewed. The patient would like to reduce to 180 pounds bringing their BMI down to about 29-30. Patient encouraged to discuss their weight loss goals with their PCP. Symptoms to report for additional pressure adjustment discussed. Patient's apnea severity and rationale for treatment to reduce apnea, improve sleep quality and reduce cardiovascular and cerebrovascular events was reviewed. I also reviewed the benefit of consistent device use of CPAP for hypertension, diabetes, depression/anxiety and attention deficit. 2. Insomnia, related to difficulty to fall asleep intermittently and to maintain sleep. She reports that about 10 times a month it is difficult to fall asleep. She wakes 2-3 times a night, sometimes can fall back to sleep and sometimes not. Her wake time varies from 5:30 to 11am on work days and she feels she can sleep even longer on days off. Her usual bedtime about midnight. Patient advised to regulate wake time days on and off. From the compliance report it appears 8am would work best so a bedtime of 12am would allow 7-8 hours of sleep. She was counseled not to go to bed unless sleepy. She was informed she could complete a sleep diary and follow up or follow up if continued problems. She would prefer the later. * Continue CPAP pressure at 6-12 cmH2O * Regulate wake time * change cushion regularly * Notify me if snoring with mask or feeling that the pressure is too much or too little * continue to lose weight * Call this office if any problems using CPAP * Return for follow up in 1 year , or sooner if concerns arise Time Spent with Patient (minutes): 32 I spent 100% of this visit face to face with the patient with greater than 50% of this was spent time counseling the patient and coordination of care.
== END 2019-11-22 13:13 | disposition home or self-care (01) ==
LOC: SC 13:12
PROVIDERS: ATTEND Nurse Practitioner Family
DX: G47.33 Obstructive sleep apnea (adult) (pediatric) (principal); E66.01 Morbid (severe) obesity due to excess calories; Z68.42 Body mass index [BMI] 45.0-49.9, adult; G47.00 Insomnia, unspecified
CPT/HCPCS: 99212; 99214

== ENCOUNTER 2020-02-01 10:45 | Outpatient (CLI) | payer OTHER ==
[2020-02-01 14:04] LABS: ALBUMIN 4.3 g/dL (3.2-5.5); ALBUMIN/GLOBULIN RATIO 1.2 (1.0-2.2); ALKALINE PHOSPHATASE 77 IU/L (42-121); ALT ALANINE AMINOTRANSFERASE 28 IU/L (10-60); AST ASPARTATE AMINOTRANSFERASE 21 IU/L (10-42); BILIRUBIN,TOTAL 0.9 mg/dL (0.2-1.0); BUN - BLOOD UREA NITROGEN 18 mg/dL (6-20); CALCIUM 9.6 mg/dL (8.5-10.3); CARBON DIOXIDE - CO2 29 mmol/L (21-32); CHLORIDE 103 mmol/L (101-111); CHOL/HDL RATIO 4.7 (<4.4); CHOLESTEROL 186 mg/dL; CREATININE 0.9 mg/dL (0.4-1.0); GLUCOSE 161 mg/dL (70-100); HDL CHOLESTEROL 40 mg/dL; LDL CHOLESTEROL,CALCULATED 88 mg/dL; LDL/HDL RATIO 2.2 (<4.4); SODIUM 138 mmol/L (135-145); TOTAL PROTEIN 7.8 g/dL (6.7-8.2); VLDL CHOLESTEROL 58 mg/dL
[2020-02-01 14:10] LABS: HB2 TOTAL 14.4 g/dL; HEMOGLOBIN A1C 0.66 g/dL; HEMOGLOBIN A1C % 6.3 % (4.6-6.2)
== END 2020-02-01 23:59 | disposition home or self-care (01) ==
LOC: LAB.WCP 10:45
PROVIDERS: ATTEND Physician Assistant Medical
DX: E11.9 Type 2 diabetes mellitus without complications (principal); E78.5 Hyperlipidemia, unspecified; E55.9 Vitamin D deficiency, unspecified; E03.9 Hypothyroidism, unspecified
CPT/HCPCS: 36415; 80053; 80061; 82306; 83036; 83721; 84443

== ENCOUNTER 2020-05-02 12:38 | Outpatient (CLI) | payer OTHER ==
[2020-05-02 18:53] LABS: CALCIUM 9.1 mg/dL (8.5-10.3); CREATININE 0.8 mg/dL (0.4-1.0)
[2020-05-02 19:13] LABS: HB2 TOTAL 13.8 g/dL; HEMOGLOBIN A1C 0.64 g/dL; HEMOGLOBIN A1C % 6.4 % (4.6-6.2)
== END 2020-05-02 23:59 | disposition home or self-care (01) ==
LOC: LAB.WCP 12:38
PROVIDERS: ATTEND Physician Assistant Medical
DX: E11.9 Type 2 diabetes mellitus without complications (principal)
CPT/HCPCS: 36415; 80048; 83036

== ENCOUNTER 2020-08-14 08:00 | Outpatient (CLI) | payer OTHER ==
[2020-08-14 18:07] LABS: CREATININE,URINE 306.9 mg/dL; MICROALBUM/CREATININE RATIO,UR 3.9 ug/mg (<30.0); MICROALBUMIN,URINE 1.2 mg/dL (0-300.0)
[2020-08-14 18:10] LABS: ALBUMIN 4.7 g/dL (3.2-5.5); ALBUMIN/GLOBULIN RATIO 1.4 (1.0-2.2); ALKALINE PHOSPHATASE 83 IU/L (42-121); ALT ALANINE AMINOTRANSFERASE 25 IU/L (10-60); AST ASPARTATE AMINOTRANSFERASE 19 IU/L (10-42); BILIRUBIN,TOTAL 0.5 mg/dL (0.2-1.0); BUN - BLOOD UREA NITROGEN 25 mg/dL (6-20); CALCIUM 10.4 mg/dL (8.5-10.3); CARBON DIOXIDE - CO2 23 mmol/L (21-32); CHLORIDE 104 mmol/L (101-111); CHOL/HDL RATIO 4.4 (<4.4); CHOLESTEROL 216 mg/dL; CREATININE 0.8 mg/dL (0.4-1.0); GLUCOSE 166 mg/dL (70-100); HDL CHOLESTEROL 49 mg/dL; LDL CHOLESTEROL,CALCULATED 113 mg/dL; LDL/HDL RATIO 2.3 (<4.4); SODIUM 139 mmol/L (135-145); TOTAL PROTEIN 8.1 g/dL (6.7-8.2); VLDL CHOLESTEROL 54 mg/dL
[2020-08-14 21:09] LABS: HEMOGLOBIN A1c% 6.7 % (4.27-6.07)
== END 2020-08-14 23:59 | disposition home or self-care (01) ==
LOC: LAB.WCP 08:00
PROVIDERS: ATTEND Physician Assistant Medical
DX: E11.9 Type 2 diabetes mellitus without complications (principal)
CPT/HCPCS: 36415; 80053; 80061; 82043; 82570; 83036; 83721

== ENCOUNTER 2020-11-01 13:16 | Outpatient (CLI) | payer OTHER ==
[2020-11-01 17:53] LABS: BASOPHILS % (AUTO) 0.5 %; EOSINOPHILS # (AUTO) 0.3 10^3/uL (0.0-0.7); EOSINOPHILS % (AUTO) 4.6 %; HGB - HEMOGLOBIN 13.6 g/dL (12.0-16.0); LYMPHOCYTES # (AUTO) 1.4 10^3/uL (1.5-3.5); LYMPHOCYTES % (AUTO) 23.5 %; MEAN CORPUSCULAR HEMOGLOBIN 31.3 pg (27.0-31.0); MEAN CORPUSCULAR HGB CONC 32.9 g/dL (32.0-36.0); MEAN CORPUSCULAR VOLUME 95.4 fL (81.0-99.0); MEAN PLATELET VOLUME 10.3 fL (7.9-10.8); MONOCYTES # (AUTO) 0.8 10^3/uL (0.0-1.0); MONOCYTES % (AUTO) 13.6 %; NEUTROPHILS # (AUTO) 3.4 10^3/uL (1.5-6.6); NEUTROPHILS % (AUTO) 57.5 %; PLT - PLATELET COUNT 220 10^3/uL (130-450); RED BLOOD COUNT 4.34 10^6/uL (4.20-5.40); WHITE BLOOD COUNT 5.9 x10^3/uL (4.8-10.8)
[2020-11-01 18:09] LABS: ALBUMIN 4.1 g/dL (3.2-5.5); ALBUMIN/GLOBULIN RATIO 1.2 (1.0-2.2); BILIRUBIN,TOTAL 0.6 mg/dL (0.2-1.0); CALCIUM 9.2 mg/dL (8.5-10.3); CREATININE 0.8 mg/dL (0.4-1.0); CRP - C-REACTIVE PROTEIN 1.8 mg/dL (0-1.0); TOTAL PROTEIN 7.4 g/dL (6.7-8.2)
== END 2020-11-01 13:17 | disposition home or self-care (01) ==
LOC: LAB.N 13:16
PROVIDERS: ATTEND Physician Assistant Medical
DX: H49.13 Fourth [trochlear] nerve palsy, bilateral (principal)
CPT/HCPCS: 36415; 80053; 82164; 82306; 85025; 85651; 86140

== ENCOUNTER 2020-11-16 08:00 | Outpatient (CLI) | payer OTHER ==
[2020-11-16 12:26] LABS: HEMOGLOBIN A1c% 7.4 % (4.27-6.07)
[2020-11-16 12:32] LABS: ALBUMIN 4.3 g/dL (3.2-5.5); ALBUMIN/GLOBULIN RATIO 1.4 (1.0-2.2); ALKALINE PHOSPHATASE 72 IU/L (42-121); ALT ALANINE AMINOTRANSFERASE 20 IU/L (10-60); AST ASPARTATE AMINOTRANSFERASE 15 IU/L (10-42); BILIRUBIN,TOTAL 0.9 mg/dL (0.2-1.0); BUN - BLOOD UREA NITROGEN 22 mg/dL (6-20); CALCIUM 9.6 mg/dL (8.5-10.3); CARBON DIOXIDE - CO2 25 mmol/L (21-32); CHLORIDE 104 mmol/L (101-111); CHOL/HDL RATIO 4.1 (<4.4); CHOLESTEROL 179 mg/dL; CREATININE 0.8 mg/dL (0.4-1.0); GLUCOSE 176 mg/dL (70-100); HDL CHOLESTEROL 44 mg/dL; LDL CHOLESTEROL,CALCULATED 86 mg/dL; TOTAL PROTEIN 7.4 g/dL (6.7-8.2); VLDL CHOLESTEROL 49 mg/dL
== END 2020-11-16 23:59 | disposition home or self-care (01) ==
LOC: LAB.WCP 08:00
PROVIDERS: ATTEND Physician Assistant Medical
DX: E11.9 Type 2 diabetes mellitus without complications (principal); E03.9 Hypothyroidism, unspecified
CPT/HCPCS: 36415; 80053; 80061; 83036; 83721; 84443

== ENCOUNTER 2020-11-24 16:26 | Outpatient (CLI) | payer OTHER ==
[2020-11-24] MEDS ORDERED: GADOBUTROL 15 MMOL/15 ML VIAL ONE (17:36)
[2020-11-24] MEDS ORDERED: GADOBUTROL 15 MMOL/15 ML VIAL IVP ONE (18:01)
--- NOTE | 2020-11-24 21:59 | MRI Report ---
PROCEDURE: Brain W/WO INDICATIONS: FOURTH CRANIAL NERVE PALSY, BILAT CONTRAST: IV CONTRAST: Gadavist ml: 13 TECHNIQUE: Noncontrast axial T1 spin echo, axial T2 fast spin echo, sagittal and axial FLAIR, coronal T2 fast sp in echo, axial gradient echo, axial diffusion and ADC through the brain. After the administration of contrast, axial and coronal T1 spin echo with fat saturation through the brain. COMPARISON: None. FINDINGS: Image quality: Excellent. CSF spaces: Basal cisterns are patent. No extra-axial fluid collections. Ventricles are normal in size and shape. Brain: No midline shift. No intracranial bleeds or masses. No abnormal intracranial enhancement. There is cerebral volume loss for age. There is periventricular white matter chronic small vessel is chemic change. The brainstem appears normal. Diffusion-weighted images demonstrate no acute ischemi c insults. No chronic ischemic insults. Normal intravascular flow voids are present. Skull and face: Calvarial marrow is normal in signal. Orbits appear normal. Sinuses: Sinuses and mastoids appear clear. IMPRESSION: 1. 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 2. The pituitary gland is prominent. If there are clinical findings to suggest pituitary adenoma, [facility] protocol MRI is suggested for follow-up. Reviewed by: Alpa Doss MD on 11/24/2020 9:58 PM [facility] Approved by: Alpa Doss MD on 11/24/2020 9:58 PM [facility] Station ID: [id number]
== END 2020-11-24 16:27 | disposition home or self-care (01) ==
LOC: DI 16:26
PROVIDERS: ATTEND Physician Assistant Medical
DX: H49.13 Fourth [trochlear] nerve palsy, bilateral (principal); E23.6 Other disorders of pituitary gland
CPT/HCPCS: 70553; A9585

== ENCOUNTER 2020-12-18 08:00 | Outpatient (CLI) | payer OTHER ==
[2020-12-18 11:49] LABS: BASOPHILS % (AUTO) 0.4 %; EOSINOPHILS # (AUTO) 0.2 10^3/uL (0.0-0.7); EOSINOPHILS % (AUTO) 2.1 %; HCT - HEMATOCRIT 33.9 % (37.0-47.0); HGB - HEMOGLOBIN 11.6 g/dL (12.0-16.0); LYMPHOCYTES # (AUTO) 1.4 10^3/uL (1.5-3.5); LYMPHOCYTES % (AUTO) 17.8 %; MEAN CORPUSCULAR HEMOGLOBIN 32.7 pg (27.0-31.0); MEAN CORPUSCULAR HGB CONC 34.2 g/dL (32.0-36.0); MEAN CORPUSCULAR VOLUME 95.5 fL (81.0-99.0); MEAN PLATELET VOLUME 10.6 fL (7.9-10.8); MONOCYTES # (AUTO) 0.7 10^3/uL (0.0-1.0); NEUTROPHILS # (AUTO) 5.4 10^3/uL (1.5-6.6); NEUTROPHILS % (AUTO) 70.3 %; PLT - PLATELET COUNT 244 10^3/uL (130-450); RED BLOOD COUNT 3.55 10^6/uL (4.20-5.40); RED CELL DISTRIBUTION WIDTH 11.9 % (12.0-15.0); WHITE BLOOD COUNT 7.7 x10^3/uL (4.8-10.8)
[2020-12-18 12:21] LABS: ALBUMIN 3.3 g/dL (3.2-5.5); ALBUMIN/GLOBULIN RATIO 1.1 (1.0-2.2); BILIRUBIN,TOTAL 0.3 mg/dL (0.2-1.0); CALCIUM 9.8 mg/dL (8.5-10.3); CREATININE 0.7 mg/dL (0.4-1.0); POTASSIUM 3.8 mmol/L (3.5-5.0); TOTAL PROTEIN 6.3 g/dL (6.7-8.2)
== END 2020-12-18 23:59 | disposition home or self-care (01) ==
LOC: LAB.R 08:00
PROVIDERS: ATTEND Internal Medicine Infectious Disease
DX: T84.53XA Infection and inflammatory reaction due to internal right knee prosthesis, initial encounter (principal)
CPT/HCPCS: 36415; 80053; 82550; 85025; 86140

== ENCOUNTER 2020-12-20 13:55 | Outpatient (CLI) | payer OTHER ==
[2020-12-20 15:14] LABS: BASOPHILS # (AUTO) 0.1 10^3/uL (0.0-0.1); BASOPHILS % (AUTO) 0.7 %; EOSINOPHILS # (AUTO) 0.3 10^3/uL (0.0-0.7); EOSINOPHILS % (AUTO) 3.5 %; HCT - HEMATOCRIT 28.7 % (37.0-47.0); HGB - HEMOGLOBIN 9.6 g/dL (12.0-16.0); LYMPHOCYTES # (AUTO) 1.9 10^3/uL (1.5-3.5); LYMPHOCYTES % (AUTO) 25.7 %; MEAN CORPUSCULAR HEMOGLOBIN 31.4 pg (27.0-31.0); MEAN CORPUSCULAR HGB CONC 33.4 g/dL (32.0-36.0); MEAN CORPUSCULAR VOLUME 93.8 fL (81.0-99.0); MEAN PLATELET VOLUME 10.6 fL (7.9-10.8); MONOCYTES # (AUTO) 0.8 10^3/uL (0.0-1.0); MONOCYTES % (AUTO) 10.5 %; NEUTROPHILS # (AUTO) 4.4 10^3/uL (1.5-6.6); NEUTROPHILS % (AUTO) 59.3 %; PLT - PLATELET COUNT 300 10^3/uL (130-450); RED BLOOD COUNT 3.06 10^6/uL (4.20-5.40); WHITE BLOOD COUNT 7.5 x10^3/uL (4.8-10.8)
[2020-12-20 15:34] LABS: ALBUMIN 3.5 g/dL (3.2-5.5); BILIRUBIN,TOTAL 0.2 mg/dL (0.2-1.0); CALCIUM 9.2 mg/dL (8.5-10.3); CREATININE 0.6 mg/dL (0.4-1.0); CRP - C-REACTIVE PROTEIN 1.1 mg/dL (0-1.0)
== END 2020-12-20 23:59 | disposition home or self-care (01) ==
LOC: LAB.R 13:55
PROVIDERS: ATTEND Internal Medicine Infectious Disease
DX: T84.53XA Infection and inflammatory reaction due to internal right knee prosthesis, initial encounter (principal)
CPT/HCPCS: 36415; 80053; 82550; 85025; 86140

== ENCOUNTER 2020-12-24 14:45 | Outpatient (CLI) | payer OTHER ==
[2020-12-24 15:51] LABS: BASOPHILS % (AUTO) 0.5 %; EOSINOPHILS # (AUTO) 0.3 10^3/uL (0.0-0.7); EOSINOPHILS % (AUTO) 3.7 %; HCT - HEMATOCRIT 34.9 % (37.0-47.0); HGB - HEMOGLOBIN 11.8 g/dL (12.0-16.0); LYMPHOCYTES # (AUTO) 1.9 10^3/uL (1.5-3.5); LYMPHOCYTES % (AUTO) 25.5 %; MEAN CORPUSCULAR HEMOGLOBIN 31.6 pg (27.0-31.0); MEAN CORPUSCULAR HGB CONC 33.8 g/dL (32.0-36.0); MEAN CORPUSCULAR VOLUME 93.3 fL (81.0-99.0); MEAN PLATELET VOLUME 10.1 fL (7.9-10.8); MONOCYTES # (AUTO) 0.7 10^3/uL (0.0-1.0); NEUTROPHILS # (AUTO) 4.5 10^3/uL (1.5-6.6); NEUTROPHILS % (AUTO) 60.9 %; PLT - PLATELET COUNT 342 10^3/uL (130-450); RED BLOOD COUNT 3.74 10^6/uL (4.20-5.40); WHITE BLOOD COUNT 7.3 x10^3/uL (4.8-10.8)
[2020-12-24 16:34] LABS: ALBUMIN 3.6 g/dL (3.2-5.5); ALBUMIN/GLOBULIN RATIO 1.1 (1.0-2.2); ALKALINE PHOSPHATASE 85 IU/L (42-121); ALT ALANINE AMINOTRANSFERASE 24 IU/L (10-60); AST ASPARTATE AMINOTRANSFERASE 17 IU/L (10-42); BILIRUBIN,TOTAL 0.4 mg/dL (0.2-1.0); BUN - BLOOD UREA NITROGEN 20 mg/dL (6-20); CALCIUM 9.5 mg/dL (8.5-10.3); CARBON DIOXIDE - CO2 24 mmol/L (21-32); CHLORIDE 103 mmol/L (101-111); CK- CREATINE KINASE 119 IU/L (22-269); CREATININE 0.7 mg/dL (0.4-1.0); GFR - MDRD 88 (>89); GLUCOSE 81 mg/dL (70-100); POTASSIUM 4.3 mmol/L (3.5-5.0); SODIUM 135 mmol/L (135-145); TOTAL PROTEIN 6.9 g/dL (6.7-8.2)
[2020-12-24 16:39] LABS: CRP - C-REACTIVE PROTEIN < 1.0 mg/dL (0-1.0)
== END 2020-12-24 23:59 | disposition home or self-care (01) ==
LOC: LAB.R 14:45
PROVIDERS: ATTEND Internal Medicine Infectious Disease
DX: T84.53XA Infection and inflammatory reaction due to internal right knee prosthesis, initial encounter (principal)
CPT/HCPCS: 80053; 82550; 85025; 86140

== ENCOUNTER 2020-12-31 13:40 | Outpatient (CLI) | payer OTHER ==
[2020-12-31 14:51] LABS: BASOPHILS % (AUTO) 0.6 %; EOSINOPHILS # (AUTO) 0.3 10^3/uL (0.0-0.7); EOSINOPHILS % (AUTO) 4.5 %; HCT - HEMATOCRIT 36.2 % (37.0-47.0); HGB - HEMOGLOBIN 12.1 g/dL (12.0-16.0); LYMPHOCYTES # (AUTO) 1.6 10^3/uL (1.5-3.5); LYMPHOCYTES % (AUTO) 22.8 %; MEAN CORPUSCULAR HEMOGLOBIN 31.8 pg (27.0-31.0); MEAN CORPUSCULAR HGB CONC 33.4 g/dL (32.0-36.0); MEAN PLATELET VOLUME 10.2 fL (7.9-10.8); MONOCYTES # (AUTO) 0.6 10^3/uL (0.0-1.0); MONOCYTES % (AUTO) 8.4 %; NEUTROPHILS # (AUTO) 4.6 10^3/uL (1.5-6.6); NEUTROPHILS % (AUTO) 63.4 %; PLT - PLATELET COUNT 264 10^3/uL (130-450); RED BLOOD COUNT 3.81 10^6/uL (4.20-5.40); RED CELL DISTRIBUTION WIDTH 12.5 % (12.0-15.0); WHITE BLOOD COUNT 7.2 x10^3/uL (4.8-10.8)
[2020-12-31 15:55] LABS: ALBUMIN 3.5 g/dL (3.2-5.5); ALBUMIN/GLOBULIN RATIO 1.1 (1.0-2.2); BILIRUBIN,TOTAL 0.6 mg/dL (0.2-1.0); CALCIUM 9.6 mg/dL (8.5-10.3); CREATININE 0.7 mg/dL (0.4-1.0); CRP - C-REACTIVE PROTEIN 1.1 mg/dL (0-1.0); POTASSIUM 4.2 mmol/L (3.5-5.0); TOTAL PROTEIN 6.6 g/dL (6.7-8.2)
== END 2020-12-31 23:59 | disposition home or self-care (01) ==
LOC: LAB.R 13:40
PROVIDERS: ATTEND Internal Medicine Infectious Disease
DX: T84.53XA Infection and inflammatory reaction due to internal right knee prosthesis, initial encounter (principal)
CPT/HCPCS: 80053; 82550; 85025; 86140

== ENCOUNTER 2021-01-07 08:00 | Outpatient (CLI) | payer OTHER ==
[2021-01-07 11:45] LABS: BASOPHILS % (AUTO) 0.7 %; EOSINOPHILS # (AUTO) 0.4 10^3/uL (0.0-0.7); EOSINOPHILS % (AUTO) 6.3 %; HCT - HEMATOCRIT 37.3 % (37.0-47.0); HGB - HEMOGLOBIN 12.4 g/dL (12.0-16.0); LYMPHOCYTES # (AUTO) 1.5 10^3/uL (1.5-3.5); LYMPHOCYTES % (AUTO) 27.2 %; MEAN CORPUSCULAR HEMOGLOBIN 31.3 pg (27.0-31.0); MEAN CORPUSCULAR HGB CONC 33.2 g/dL (32.0-36.0); MEAN CORPUSCULAR VOLUME 94.2 fL (81.0-99.0); MEAN PLATELET VOLUME 10.2 fL (7.9-10.8); MONOCYTES # (AUTO) 0.6 10^3/uL (0.0-1.0); MONOCYTES % (AUTO) 10.1 %; NEUTROPHILS # (AUTO) 3.1 10^3/uL (1.5-6.6); NEUTROPHILS % (AUTO) 55.3 %; PLT - PLATELET COUNT 221 10^3/uL (130-450); RED BLOOD COUNT 3.96 10^6/uL (4.20-5.40); RED CELL DISTRIBUTION WIDTH 12.5 % (12.0-15.0); WHITE BLOOD COUNT 5.5 x10^3/uL (4.8-10.8)
[2021-01-07 12:33] LABS: ALBUMIN 3.8 g/dL (3.2-5.5); ALBUMIN/GLOBULIN RATIO 1.2 (1.0-2.2); ALKALINE PHOSPHATASE 93 IU/L (42-121); ALT ALANINE AMINOTRANSFERASE 61 IU/L (10-60); AST ASPARTATE AMINOTRANSFERASE 32 IU/L (10-42); BILIRUBIN,TOTAL 0.5 mg/dL (0.2-1.0); BUN - BLOOD UREA NITROGEN 22 mg/dL (6-20); CALCIUM 9.9 mg/dL (8.5-10.3); CARBON DIOXIDE - CO2 23 mmol/L (21-32); CHLORIDE 103 mmol/L (101-111); CK- CREATINE KINASE 68 IU/L (22-269); CREATININE 0.7 mg/dL (0.4-1.0); GFR - MDRD 88 (>89); GLUCOSE 143 mg/dL (70-100); SODIUM 136 mmol/L (135-145)
[2021-01-07 12:35] LABS: CRP - C-REACTIVE PROTEIN < 1.0 mg/dL (0-1.0)
== END 2021-01-07 23:59 | disposition home or self-care (01) ==
LOC: LAB.R 08:00
PROVIDERS: ATTEND Internal Medicine Infectious Disease
DX: T84.53XA Infection and inflammatory reaction due to internal right knee prosthesis, initial encounter (principal)
CPT/HCPCS: 80053; 82550; 85025; 86140

== ENCOUNTER 2021-01-17 08:00 | Outpatient (CLI) | payer OTHER ==
[2021-01-17 11:35] LABS: BASOPHILS % (AUTO) 0.5 %; EOSINOPHILS # (AUTO) 0.4 10^3/uL (0.0-0.7); EOSINOPHILS % (AUTO) 6.6 %; HCT - HEMATOCRIT 36.5 % (37.0-47.0); HGB - HEMOGLOBIN 11.8 g/dL (12.0-16.0); LYMPHOCYTES # (AUTO) 1.6 10^3/uL (1.5-3.5); LYMPHOCYTES % (AUTO) 29.3 %; MEAN CORPUSCULAR HEMOGLOBIN 30.6 pg (27.0-31.0); MEAN CORPUSCULAR HGB CONC 32.3 g/dL (32.0-36.0); MEAN CORPUSCULAR VOLUME 94.8 fL (81.0-99.0); MEAN PLATELET VOLUME 10.1 fL (7.9-10.8); MONOCYTES # (AUTO) 0.5 10^3/uL (0.0-1.0); MONOCYTES % (AUTO) 9.9 %; NEUTROPHILS # (AUTO) 2.9 10^3/uL (1.5-6.6); NEUTROPHILS % (AUTO) 53.5 %; PLT - PLATELET COUNT 238 10^3/uL (130-450); RED BLOOD COUNT 3.85 10^6/uL (4.20-5.40); RED CELL DISTRIBUTION WIDTH 12.8 % (12.0-15.0); WHITE BLOOD COUNT 5.5 x10^3/uL (4.8-10.8)
[2021-01-17 12:11] LABS: ALBUMIN 3.4 g/dL (3.2-5.5); ALBUMIN/GLOBULIN RATIO 1.1 (1.0-2.2); BILIRUBIN,TOTAL 0.5 mg/dL (0.2-1.0); CALCIUM 9.5 mg/dL (8.5-10.3); CREATININE 0.6 mg/dL (0.4-1.0); CRP - C-REACTIVE PROTEIN 1.1 mg/dL (0-1.0); POTASSIUM 3.9 mmol/L (3.5-5.0); TOTAL PROTEIN 6.4 g/dL (6.7-8.2)
== END 2021-01-17 23:59 | disposition home or self-care (01) ==
LOC: LAB.R 08:00
DX: T84.53XA Infection and inflammatory reaction due to internal right knee prosthesis, initial encounter (principal)
CPT/HCPCS: 80053; 82550; 85025; 86140

== ENCOUNTER 2021-01-21 12:52 | Outpatient (CLI) | payer OTHER ==
[2021-01-21 13:07] LABS: BASOPHILS % (AUTO) 0.7 %; EOSINOPHILS # (AUTO) 0.3 10^3/uL (0.0-0.7); EOSINOPHILS % (AUTO) 5.6 %; HCT - HEMATOCRIT 37.1 % (37.0-47.0); HGB - HEMOGLOBIN 12.8 g/dL (12.0-16.0); LYMPHOCYTES # (AUTO) 1.6 10^3/uL (1.5-3.5); MEAN CORPUSCULAR HEMOGLOBIN 32.2 pg (27.0-31.0); MEAN CORPUSCULAR HGB CONC 34.5 g/dL (32.0-36.0); MEAN CORPUSCULAR VOLUME 93.5 fL (81.0-99.0); MEAN PLATELET VOLUME 10.1 fL (7.9-10.8); MONOCYTES # (AUTO) 0.6 10^3/uL (0.0-1.0); MONOCYTES % (AUTO) 10.6 %; NEUTROPHILS # (AUTO) 3.2 10^3/uL (1.5-6.6); NEUTROPHILS % (AUTO) 54.9 %; PLT - PLATELET COUNT 260 10^3/uL (130-450); RED BLOOD COUNT 3.97 10^6/uL (4.20-5.40); RED CELL DISTRIBUTION WIDTH 12.5 % (12.0-15.0); WHITE BLOOD COUNT 5.9 x10^3/uL (4.8-10.8)
[2021-01-21 14:04] LABS: ALBUMIN 3.6 g/dL (3.2-5.5); ALBUMIN/GLOBULIN RATIO 1.2 (1.0-2.2); ALKALINE PHOSPHATASE 86 IU/L (42-121); ALT ALANINE AMINOTRANSFERASE 22 IU/L (10-60); AST ASPARTATE AMINOTRANSFERASE 17 IU/L (10-42); BILIRUBIN,TOTAL 0.7 mg/dL (0.2-1.0); BUN - BLOOD UREA NITROGEN 18 mg/dL (6-20); CALCIUM 9.5 mg/dL (8.5-10.3); CARBON DIOXIDE - CO2 23 mmol/L (21-32); CHLORIDE 104 mmol/L (101-111); CK- CREATINE KINASE 74 IU/L (22-269); CREATININE 0.7 mg/dL (0.4-1.0); GFR - MDRD 88 (>89); GLUCOSE 134 mg/dL (70-100); POTASSIUM 4.3 mmol/L (3.5-5.0); SODIUM 138 mmol/L (135-145); TOTAL PROTEIN 6.7 g/dL (6.7-8.2)
[2021-01-21 14:08] LABS: CRP - C-REACTIVE PROTEIN < 1.0 mg/dL (0-1.0)
== END 2021-01-21 12:53 | disposition home or self-care (01) ==
LOC: LAB.R 12:52
DX: T84.53XA Infection and inflammatory reaction due to internal right knee prosthesis, initial encounter (principal)
CPT/HCPCS: 80053; 82550; 85025; 86140

== ENCOUNTER 2021-02-05 10:16 | Outpatient (CLI) | payer OTHER ==
[2021-02-05 11:41] LABS: BASOPHILS % (AUTO) 0.3 %; EOSINOPHILS # (AUTO) 0.3 10^3/uL (0.0-0.7); EOSINOPHILS % (AUTO) 3.5 %; HCT - HEMATOCRIT 39.5 % (37.0-47.0); HGB - HEMOGLOBIN 12.7 g/dL (12.0-16.0); LYMPHOCYTES # (AUTO) 1.9 10^3/uL (1.5-3.5); LYMPHOCYTES % (AUTO) 26.8 %; MEAN CORPUSCULAR HEMOGLOBIN 30.5 pg (27.0-31.0); MEAN CORPUSCULAR HGB CONC 32.2 g/dL (32.0-36.0); MEAN CORPUSCULAR VOLUME 94.7 fL (81.0-99.0); MEAN PLATELET VOLUME 10.4 fL (7.9-10.8); MONOCYTES # (AUTO) 0.6 10^3/uL (0.0-1.0); MONOCYTES % (AUTO) 8.6 %; NEUTROPHILS # (AUTO) 4.3 10^3/uL (1.5-6.6); NEUTROPHILS % (AUTO) 60.4 %; PLT - PLATELET COUNT 261 10^3/uL (130-450); RED BLOOD COUNT 4.17 10^6/uL (4.20-5.40); RED CELL DISTRIBUTION WIDTH 12.6 % (12.0-15.0); WHITE BLOOD COUNT 7.1 x10^3/uL (4.8-10.8)
[2021-02-05 11:57] LABS: BUN - BLOOD UREA NITROGEN 18 mg/dL (6-20); CALCIUM 9.9 mg/dL (8.5-10.3); CARBON DIOXIDE - CO2 25 mmol/L (21-32); CHLORIDE 106 mmol/L (101-111); CREATININE 0.7 mg/dL (0.4-1.0); GFR - MDRD 88 (>89); GLUCOSE 154 mg/dL (70-100); POTASSIUM 3.8 mmol/L (3.5-5.0); SODIUM 141 mmol/L (135-145)
[2021-02-05 12:01] LABS: CRP - C-REACTIVE PROTEIN < 1.0 mg/dL (0-1.0)
== END 2021-02-05 23:59 | disposition home or self-care (01) ==
LOC: LAB.N 10:16
PROVIDERS: ATTEND Family Medicine
DX: M79.674 Pain in right toe(s) (principal); T84.59XD Infection and inflammatory reaction due to other internal joint prosthesis, subsequent encounter
CPT/HCPCS: 36415; 80048; 85025; 85651; 86140

== ENCOUNTER 2021-02-11 08:00 | Outpatient (CLI) | payer OTHER ==
[2021-02-11 18:34] LABS: BASOPHILS % (AUTO) 0.5 %; EOSINOPHILS # (AUTO) 0.2 10^3/uL (0.0-0.7); EOSINOPHILS % (AUTO) 3.3 %; HCT - HEMATOCRIT 38.6 % (37.0-47.0); HGB - HEMOGLOBIN 12.5 g/dL (12.0-16.0); LYMPHOCYTES # (AUTO) 1.8 10^3/uL (1.5-3.5); LYMPHOCYTES % (AUTO) 29.7 %; MEAN CORPUSCULAR HEMOGLOBIN 31.3 pg (27.0-31.0); MEAN CORPUSCULAR HGB CONC 32.4 g/dL (32.0-36.0); MEAN CORPUSCULAR VOLUME 96.5 fL (81.0-99.0); MEAN PLATELET VOLUME 10.6 fL (7.9-10.8); MONOCYTES # (AUTO) 0.5 10^3/uL (0.0-1.0); MONOCYTES % (AUTO) 8.6 %; NEUTROPHILS # (AUTO) 3.5 10^3/uL (1.5-6.6); NEUTROPHILS % (AUTO) 57.7 %; PLT - PLATELET COUNT 244 10^3/uL (130-450); RED CELL DISTRIBUTION WIDTH 12.5 % (12.0-15.0)
[2021-02-11 18:53] LABS: ALBUMIN 3.9 g/dL (3.2-5.5); ALBUMIN/GLOBULIN RATIO 1.2 (1.0-2.2); ALKALINE PHOSPHATASE 96 IU/L (42-121); ALT ALANINE AMINOTRANSFERASE 14 IU/L (10-60); AST ASPARTATE AMINOTRANSFERASE 16 IU/L (10-42); BILIRUBIN,TOTAL 0.9 mg/dL (0.2-1.0); BUN - BLOOD UREA NITROGEN 16 mg/dL (6-20); CALCIUM 9.6 mg/dL (8.5-10.3); CARBON DIOXIDE - CO2 25 mmol/L (21-32); CHLORIDE 106 mmol/L (101-111); CREATININE 0.7 mg/dL (0.4-1.0); GFR - MDRD 88 (>89); GLUCOSE 126 mg/dL (70-100); POTASSIUM 4.2 mmol/L (3.5-5.0); SODIUM 141 mmol/L (135-145); TOTAL PROTEIN 7.2 g/dL (6.7-8.2)
[2021-02-11 19:31] LABS: CRP - C-REACTIVE PROTEIN < 1.0 mg/dL (0-1.0)
[2021-02-11 21:30] LABS: ESTIMATED AVERAGE GLUCOSE 126 mg/dL (70-100)
== END 2021-02-11 23:59 | disposition home or self-care (01) ==
LOC: LAB.WCP 08:00
PROVIDERS: ATTEND Physician Assistant Medical
DX: E11.9 Type 2 diabetes mellitus without complications (principal); M00.9 Pyogenic arthritis, unspecified
CPT/HCPCS: 36415; 80048; 80053; 83036; 85025; 85651; 86140

== ENCOUNTER 2021-03-14 13:02 | Outpatient (CLI) | payer OTHER ==
[2021-03-14 13:54] LABS: BASOPHILS % (AUTO) 0.3 %; EOSINOPHILS # (AUTO) 0.1 10^3/uL (0.0-0.7); EOSINOPHILS % (AUTO) 1.7 %; HCT - HEMATOCRIT 39.4 % (37.0-47.0); LYMPHOCYTES # (AUTO) 1.9 10^3/uL (1.5-3.5); LYMPHOCYTES % (AUTO) 24.5 %; MEAN CORPUSCULAR HEMOGLOBIN 30.7 pg (27.0-31.0); MEAN CORPUSCULAR VOLUME 92.9 fL (81.0-99.0); MEAN PLATELET VOLUME 9.1 fL (7.9-10.8); MONOCYTES # (AUTO) 0.6 10^3/uL (0.0-1.0); NEUTROPHILS # (AUTO) 5.2 10^3/uL (1.5-6.6); NEUTROPHILS % (AUTO) 66.2 %; PLT - PLATELET COUNT 241 10^3/uL (130-450); RED BLOOD COUNT 4.24 10^6/uL (4.20-5.40); RED CELL DISTRIBUTION WIDTH 12.6 % (12.0-15.0); WHITE BLOOD COUNT 7.8 x10^3/uL (4.8-10.8)
[2021-03-14 14:14] LABS: ALBUMIN 4.1 g/dL (3.2-5.5); ALBUMIN/GLOBULIN RATIO 1.3 (1.0-2.2); ALKALINE PHOSPHATASE 84 IU/L (42-121); ALT ALANINE AMINOTRANSFERASE 17 IU/L (10-60); AST ASPARTATE AMINOTRANSFERASE 18 IU/L (10-42); BILIRUBIN,TOTAL 0.6 mg/dL (0.2-1.0); BUN - BLOOD UREA NITROGEN 22 mg/dL (6-20); CALCIUM 9.6 mg/dL (8.5-10.3); CARBON DIOXIDE - CO2 23 mmol/L (21-32); CHLORIDE 104 mmol/L (101-111); CREATININE 0.9 mg/dL (0.4-1.0); GFR - MDRD 66 (>89); GLUCOSE 213 mg/dL (70-100); POTASSIUM 4.2 mmol/L (3.5-5.0); SODIUM 137 mmol/L (135-145); TOTAL PROTEIN 7.2 g/dL (6.7-8.2)
[2021-03-14 15:05] LABS: CRP - C-REACTIVE PROTEIN < 1.0 mg/dL (0-1.0)
== END 2021-03-14 13:03 | disposition home or self-care (01) ==
LOC: RT 13:02
PROVIDERS: ATTEND Physician Assistant Medical
DX: M00.9 Pyogenic arthritis, unspecified (principal); Z79.899 Other long term (current) drug therapy; Z79.2 Long term (current) use of antibiotics
CPT/HCPCS: 36415; 80053; 85025; 85651; 86140; 93005

== ENCOUNTER 2021-03-21 12:51 | Outpatient (CLI) | payer OTHER | END 2021-03-21 23:59 | disposition home or self-care (01) | LOC: RT 12:51 | PROVIDERS: ATTEND Physician Assistant Medical | DX: Z79.899 Other long term (current) drug therapy (principal); Z79.2 Long term (current) use of antibiotics | CPT/HCPCS: 93005 ==

== ENCOUNTER 2021-04-09 08:00 | Outpatient (CLI) | payer OTHER ==
[2021-04-09 18:02] LABS: BASOPHILS % (AUTO) 0.4 %; EOSINOPHILS # (AUTO) 0.2 10^3/uL (0.0-0.7); EOSINOPHILS % (AUTO) 2.2 %; HCT - HEMATOCRIT 40.3 % (37.0-47.0); HGB - HEMOGLOBIN 13.4 g/dL (12.0-16.0); LYMPHOCYTES # (AUTO) 2.6 10^3/uL (1.5-3.5); LYMPHOCYTES % (AUTO) 31.5 %; MEAN CORPUSCULAR HEMOGLOBIN 30.9 pg (27.0-31.0); MEAN CORPUSCULAR HGB CONC 33.3 g/dL (32.0-36.0); MEAN CORPUSCULAR VOLUME 92.9 fL (81.0-99.0); MEAN PLATELET VOLUME 9.9 fL (7.9-10.8); MONOCYTES # (AUTO) 0.6 10^3/uL (0.0-1.0); MONOCYTES % (AUTO) 6.8 %; NEUTROPHILS # (AUTO) 4.9 10^3/uL (1.5-6.6); NEUTROPHILS % (AUTO) 58.9 %; PLT - PLATELET COUNT 292 10^3/uL (130-450); RED BLOOD COUNT 4.34 10^6/uL (4.20-5.40); WHITE BLOOD COUNT 8.4 x10^3/uL (4.8-10.8)
[2021-04-09 18:24] LABS: ALBUMIN/GLOBULIN RATIO 1.3 (1.0-2.2); BILIRUBIN,TOTAL 0.6 mg/dL (0.2-1.0); CALCIUM 9.2 mg/dL (8.5-10.3); CREATININE 0.8 mg/dL (0.4-1.0); POTASSIUM 3.9 mmol/L (3.5-5.0); TOTAL PROTEIN 7.1 g/dL (6.7-8.2)
== END 2021-04-09 23:59 | disposition home or self-care (01) ==
LOC: LAB.WCP 08:00
PROVIDERS: ATTEND Internal Medicine Infectious Disease
DX: M00.9 Pyogenic arthritis, unspecified (principal)
CPT/HCPCS: 36415; 80053; 85025; 86140

== ENCOUNTER 2021-04-25 09:01 | Outpatient (CLI) | payer OTHER ==
--- NOTE | 2021-04-25 09:25 | SLEEP CARE CONSULTATION ---
Information from patient questionnaire entered by Mo Leiva. I have reviewed and concur with the information entered by Mo Leiva. This document represents the service I personally performed and the decisions made by , Cheyenne Costello ARNP. History of Present Illness Service Date and Time: 04/25/2021 09 Previous diagnosis: Mild, Obstructive Sleep Apnea-Hypopnea Syndrome AHI: 9.5 Reason for follow up: annual Equipment type: CPAP Equipment obtained from: [employer] (don't like this company; insurance has changed now) Mask style: Full face Mask brand: [employer] (Mirage Quattro) Backup mask available: Yes (old mask) Last cushion change: 1.5 months Prior sleep studies: Yes Year and Where: [facility] 2013 Type of Sleep Study: Polysomnography HPI additional information: KIRK MANLEY was diagnosed to have mild, AHI 9.5, obstructive sleep apnea- hypopnea syndrome and returned today for CPAP therapy annual follow-up. CPAP Compliance Data - Data Reviewed with Patient Average duration of nightly device use: 7 h 21 min Compliance rate %: 87 Current pressure setting (cmH2O): 6-12 Average residual AHI: 1.3 Subjective Missed days of use due to: reports: other (Machine problems) Patient concerns: denies: aerophagia, mask discomfort, air blowing in eyes, mask leak noise, condensation in mask/hose, nasal congestion, dry mouth, nose, throat, epistaxis, other Observed to snore while using device: No Current pressure setting perceived as: comfortable On therapy, patient: reports: sleeping better, awakening more refreshed, being more awake and alert during the day, more rested overall. denies: drowsiness while driving Initial [place] Sleepiness Scale score: 4 (in 2018) Current [place] Sleepiness Scale score: 7 Allergies and Home Medications Home medication list reviewed: Yes (doxycycline) Review of Systems Review of systems same as previous: No (Septic infection in right knee) Physical Exam Heart Rate: 79 O2 Saturation: 96 Height: 5 ft 4 in Weight: 268 lb Body Mass Index: 46.0 BMI Classification: Morbidly Obese Impression and Plan 1. Obstructive Sleep Apnea-Hypopnea Syndrome, mild, with good treatment compliance and good apnea control. On CPAP therapy, the patient has better sleep quality and is more rested overall. Patient states her machine fell off of her nightstand cracked the water chamber. She replaced the chamber and then a day later the device stopped working altogether. She changed insurance about a year ago and would like to see if she can get a new machine. She would also like to transfer from [facility] to a new DME supplier since she now has new insurance. I will have my workers compensation coordinator inform of DME options. A DWO prescription will then be made. Patient advised to contact this office if further supply problems. The patients CPAP is over 5 years old and of reasonable use. Thus, the CPAP will be updated. A DWO prescription will be made. Compliance guidelines for new device and follow up discussed. Patient's apnea severity and rationale for treatment to reduce apnea, improve sleep quality and reduce cardiovascular and cerebrovascular events was reviewed. I also reviewed the benefit of consistent device use of CPAP for hypertension, diabetes, depression/anxiety, and attention deficit. Patient encouraged to try to lose weight to improve their overall health. * Continue auto CPAP pressure at 6-12 cmH2O * Transfer DME * Update broken device * Notify me if snoring with mask or feeling that the pressure is too much or too little * Attempt to lose weight * Call this office if any problems using CPAP * Return for follow up one month after using new device, or sooner if concerns arise Counseling Topics: Spare mask, Weight loss health impact Visit Type: In Office Time Spent with Patient (minutes): 20 Provider Statement: I spent 100% of the Face to Face Visit with the patient with greater than 50% spent counseling the patient and coordination of care.
== END 2021-04-25 09:02 | disposition home or self-care (01) ==
LOC: SC 09:01
PROVIDERS: ATTEND Nurse Practitioner Family
DX: G47.33 Obstructive sleep apnea (adult) (pediatric) (principal); E66.01 Morbid (severe) obesity due to excess calories; Z68.42 Body mass index [BMI] 45.0-49.9, adult
CPT/HCPCS: 99212; 99213

== ENCOUNTER 2021-05-13 11:56 | Outpatient (CLI) | payer OTHER ==
[2021-05-13 18:06] LABS: BASOPHILS % (AUTO) 0.4 %; EOSINOPHILS # (AUTO) 0.2 10^3/uL (0.0-0.7); EOSINOPHILS % (AUTO) 2.3 %; HCT - HEMATOCRIT 39.6 % (37.0-47.0); HGB - HEMOGLOBIN 12.9 g/dL (12.0-16.0); LYMPHOCYTES # (AUTO) 2.1 10^3/uL (1.5-3.5); LYMPHOCYTES % (AUTO) 29.1 %; MEAN CORPUSCULAR HEMOGLOBIN 31.2 pg (27.0-31.0); MEAN CORPUSCULAR HGB CONC 32.6 g/dL (32.0-36.0); MEAN CORPUSCULAR VOLUME 95.7 fL (81.0-99.0); MEAN PLATELET VOLUME 10.1 fL (7.9-10.8); MONOCYTES # (AUTO) 0.7 10^3/uL (0.0-1.0); MONOCYTES % (AUTO) 9.1 %; NEUTROPHILS # (AUTO) 4.3 10^3/uL (1.5-6.6); NEUTROPHILS % (AUTO) 58.8 %; PLT - PLATELET COUNT 252 10^3/uL (130-450); RED BLOOD COUNT 4.14 10^6/uL (4.20-5.40); RED CELL DISTRIBUTION WIDTH 13.2 % (12.0-15.0); WHITE BLOOD COUNT 7.3 x10^3/uL (4.8-10.8)
[2021-05-13 18:21] LABS: ALBUMIN/GLOBULIN RATIO 1.3 (1.0-2.2); BILIRUBIN,TOTAL 0.6 mg/dL (0.2-1.0); CALCIUM 9.5 mg/dL (8.5-10.3); CREATININE 0.7 mg/dL (0.4-1.0); CRP - C-REACTIVE PROTEIN 1.2 mg/dL (0-1.0); POTASSIUM 4.2 mmol/L (3.5-5.0); TOTAL PROTEIN 7.2 g/dL (6.7-8.2)
[2021-05-13 20:05] LABS: THYROID STIMULATING HORMONE 1.63 uIU/mL (0.34-5.60)
[2021-05-13 20:28] LABS: ESTIMATED AVERAGE GLUCOSE 151 mg/dL (70-100); HEMOGLOBIN A1c% 6.9 % (4.27-6.07)
== END 2021-05-13 23:59 | disposition home or self-care (01) ==
LOC: LAB.WCP 11:56
PROVIDERS: ATTEND Internal Medicine Infectious Disease
DX: M00.9 Pyogenic arthritis, unspecified (principal); E11.9 Type 2 diabetes mellitus without complications; E03.9 Hypothyroidism, unspecified
CPT/HCPCS: 36415; 80053; 83036; 84443; 85025; 86140

== ENCOUNTER 2021-07-17 08:00 | Outpatient (CLI) | payer OTHER | END 2021-07-17 23:59 | disposition home or self-care (01) | LOC: LAB.N 08:00 | PROVIDERS: ATTEND Family Medicine | DX: N39.0 Urinary tract infection, site not specified (principal) | CPT/HCPCS: 87086; 87181 ==

== ENCOUNTER 2021-08-04 08:00 | Outpatient (CLI) | payer OTHER | END 2021-08-04 23:59 | disposition home or self-care (01) | LOC: LAB 08:00 | PROVIDERS: ATTEND Nurse Practitioner | DX: R51.9 Headache, unspecified (principal); Z20.822 Contact with and (suspected) exposure to COVID-19 ==

== ENCOUNTER 2021-08-29 08:00 | Outpatient (CLI) | payer OTHER ==
[2021-08-29 12:51] LABS: CREATININE,URINE 215.6 mg/dL; MICROALBUM/CREATININE RATIO,UR 2.8 ug/mg (<30.0); MICROALBUMIN,URINE 0.6 mg/dL (0-300.0)
[2021-08-29 12:52] LABS: ALBUMIN 4.3 g/dL (3.2-5.5); ALBUMIN/GLOBULIN RATIO 1.3 (1.0-2.2); ALKALINE PHOSPHATASE 87 IU/L (42-121); ALT ALANINE AMINOTRANSFERASE 21 IU/L (10-60); AST ASPARTATE AMINOTRANSFERASE 15 IU/L (10-42); BILIRUBIN,TOTAL 0.9 mg/dL (0.2-1.0); BUN - BLOOD UREA NITROGEN 22 mg/dL (6-20); CALCIUM 9.6 mg/dL (8.5-10.3); CARBON DIOXIDE - CO2 28 mmol/L (21-32); CHLORIDE 103 mmol/L (101-111); CHOL/HDL RATIO 3.9 (<4.4); CHOLESTEROL 154 mg/dL; CREATININE 0.8 mg/dL (0.4-1.0); GFR - MDRD 75 (>89); GLUCOSE 143 mg/dL (70-100); HDL CHOLESTEROL 40 mg/dL; LDL CHOLESTEROL,CALCULATED 69 mg/dL; LDL/HDL RATIO 1.7 (<4.4); SODIUM 140 mmol/L (135-145); TOTAL PROTEIN 7.6 g/dL (6.7-8.2); TRIGLYCERIDES 223 mg/dL; VLDL CHOLESTEROL 45 mg/dL
[2021-08-29 12:55] LABS: ESTIMATED AVERAGE GLUCOSE 146 mg/dL (70-100); HEMOGLOBIN A1c% 6.7 % (4.27-6.07)
== END 2021-08-29 23:59 | disposition home or self-care (01) ==
LOC: LAB.WCP 08:00
PROVIDERS: ATTEND Physician Assistant Medical
DX: E11.9 Type 2 diabetes mellitus without complications (principal)
CPT/HCPCS: 36415; 80053; 80061; 82043; 82570; 83036; 83721

== ENCOUNTER 2021-09-05 12:45 | Outpatient (CLI) | payer OTHER ==
[2021-09-05 13:28] VITALS: BP 149/94
--- NOTE | 2021-09-05 13:28 | SLEEP CARE CONSULTATION ---
Information from patient questionnaire entered by Jana Espinoza MA. I have reviewed and concur with the information entered by Jana Espinoza MA. This document represents the service I personally performed and the decisions made by , Cheyenne Costello ARNP. History of Present Illness Service Date and Time: 09/05/2021 1245 Previous diagnosis: Mild, Obstructive Sleep Apnea-Hypopnea Syndrome AHI: 9.5 Reason for follow up: first compliance (END OF JUNE), first compliance after device update Equipment type: CPAP Equipment obtained from: [employer] (getting supplies needed) Mask style: Full face Backup mask available: Yes (old mask) Last cushion change: 1 month Prior sleep studies: Yes Year and Where: [facility] 2013 Type of Sleep Study: Polysomnography HPI additional information: KIRK MANLEY was diagnosed to have mild, AHI 9.5, obstructive sleep apnea- hypopnea syndrome and returned today for CPAP therapy first compliance after updating device follow-up. Sleep Study - Results Type of Sleep Study: Polysomnography Prior sleep studies: Yes Year and Where: [facility] 2013 CPAP Compliance Data - Data Reviewed with Patient Average duration of nightly device use: 8.5 hours Compliance rate %: 70 Current pressure setting (cmH2O): 6-12 (per last chart note) Average residual AHI: 2.6 Central apnea: 0.9 Obstructive apnea: 0.6 Subjective Missed days of use due to: reports: other (POWER OUTAGE) Patient concerns: denies: aerophagia, mask discomfort, air blowing in eyes, mask leak noise, condensation in mask/hose, nasal congestion, dry mouth, nose, throat, epistaxis, other Observed to snore while using device: No Current pressure setting perceived as: comfortable On therapy, patient: reports: sleeping better, awakening more refreshed, being more awake and alert during the day, more rested overall. denies: drowsiness while driving Initial [place] Sleepiness Scale score: 4 (in 2017) Current [place] Sleepiness Scale score: 1 (IN 2020) Allergies and Home Medications Known drug allergies: Yes (PCN) Home medication list reviewed: Yes (no changes) Review of Systems Review of systems same as previous: Yes (no changes) Physical Exam Vital signs obtained and entered by: Chuy ESPINOZA CMA AAHERMINIA Blood Pressure: 149/94 (left, stated same BP this morning at PCP) Cuff size: wrist Heart Rate: 85 O2 Saturation: 97 (with mask) Height: 5 ft 4 in Weight: 266 lb Body Mass Index: 45.6 BMI Classification: Morbidly Obese Impression and Plan 1. Obstructive Sleep Apnea-Hypopnea Syndrome, mild, with good treatment compliance and good apnea control. On CPAP therapy, the patient has better sleep quality and is more rested overall. Patient received a new device, iBreeze 20A. She likes the new CPAP machine and is happy with her new DME supplier, [employer]. She has reached compliance with her new device. Patient's apnea severity and rationale for treatment to reduce apnea, improve sleep quality and reduce cardiovascular and cerebrovascular events was reviewed. I also reviewed the benefit of consistent device use of CPAP for hypertension, diabetes, gastric reflux, depression, anxiety and attention deficit. * Continue auto CPAP pressure at 6-12 cmH2O * Notify me if snoring with mask or feeling that the pressure is too much or too little * Attempt to lose weight * Call this office if any problems using CPAP * Return for follow up in 1 year, or sooner if concerns arise Counseling Topics: Spare mask, Weight loss health impact Visit Type: In Office Time Spent with Patient (minutes): 23 Provider Statement: I spent 100% of the Face to Face Visit with the patient with greater than 50% spent counseling the patient and coordination of care.
== END 2021-09-05 12:46 | disposition home or self-care (01) ==
LOC: SC 12:45
PROVIDERS: ATTEND Nurse Practitioner Family
DX: G47.33 Obstructive sleep apnea (adult) (pediatric) (principal); E66.01 Morbid (severe) obesity due to excess calories; Z68.42 Body mass index [BMI] 45.0-49.9, adult
CPT/HCPCS: 99212; 99213

== ENCOUNTER 2023-09-30 15:15 | Outpatient (CLI) | payer OTHER ==
--- NOTE | 2023-09-30 16:40 | XRAY Report ---
PROCEDURE: Chest 2V INDICATIONS: PRODUCTIVE COUGH TECHNIQUE: 2 views of the chest were acquired. COMPARISON: None. FINDINGS: Surgical changes and devices: None. Lungs and pleura: Hazy left basilar airspace opacity. Mediastinum: Mediastinal contours appear normal. Heart size is normal. Bones and chest wall: No suspicious bony lesions. Overlying soft tissues appear unremarkable. IMPRESSION: Hazy left basilar airspace opacity, could represent developing pneumonia or atelectasis. Reviewed by: Rogers Sage MD on 09/30/2023 4:38 PM PST Approved by: Rogers Sage MD on 09/30/2023 4:38 PM PST Station ID: [id number]
== END 2023-09-30 15:30 | disposition home or self-care (01) ==
LOC: DI.N 15:15
PROVIDERS: ATTEND Nurse Practitioner
DX: R05.8 Other specified cough (principal); R91.8 Other nonspecific abnormal finding of lung field

== ENCOUNTER 2023-10-29 08:50 | Outpatient (CLI) | payer OTHER ==
--- NOTE | 2023-10-29 09:24 | Sleep Patient Instructions ---
Sleep Center Visit Summary - Patient Visit Information Reason for Visit: Annual visit - Patient Instructions Additional Instructions: You will continue with CPAP therapy with pressure set at 6-12 cmH2O. A supply prescription will be updated with your DME. We encourage you to continue to try to lose weight. Please follow up with the sleep care office in 1 year. - Clinic Information Contact: [facility] [address] [place] [address] [email or web address] T: [phone]
--- NOTE | 2023-10-29 09:27 | SLEEP CARE CONSULTATION ---
Information from patient questionnaire entered by Nargis Laguna. I have reviewed and concur with the information entered by Nargis Laguna. This document represents the service I personally performed and the decisions made by , Cheyenne Costello ARNP. History of Present Illness Service Date and Time: 10/29/2023 0850 Previous diagnosis: Mild, Obstructive Sleep Apnea-Hypopnea Syndrome AHI: 9.5 (in 2013) Reason for follow up: annual (LAST SEEN 2020) Equipment type: CPAP (RESMED Airsense 11; NEED SD) Equipment obtained from: [employer] (getting supplies needed) Mask style: Full face Backup mask available: Yes (old mask) Last cushion change: 1 month Prior sleep studies: Yes Year and Where: [facility] 2013 Type of Sleep Study: Polysomnography HPI additional information: KIRK MANLEY was diagnosed to have mild, AHI 9.5, obstructive sleep apnea- hypopnea syndrome and returned today for CPAP therapy annual follow-up. Sleep Study - Results Type of Sleep Study: Polysomnography Prior sleep studies: Yes Year and Where: [facility] 2013 CPAP Compliance Data - Data Reviewed with Patient Average duration of nightly device use: 7.4 hours Compliance rate %: 86 (343/365 days used) Current pressure setting (cmH2O): 6-12 (avg 11.4) Humidity settin Average residual AHI: 2 Central apnea: 0.3 Obstructive apnea: 0.7 Average large leak: 2 L/min Subjective Missed days of use due to: reports: family emergency Patient concerns: denies: aerophagia, mask discomfort, air blowing in eyes, mask leak noise, condensation in mask/hose, nasal congestion, dry mouth, nose, throat, epistaxis Observed to snore while using device: No Current pressure setting perceived as: comfortable On therapy, patient: reports: sleeping better, awakening more refreshed, being more awake and alert during the day, more rested overall. denies: drowsiness while driving Initial [place] Sleepiness Scale score: 4 (in 2018) Current [place] Sleepiness Scale score: 1 Allergies and Home Medications Known drug allergies: Yes (as listed) Drug allergies reviewed: Yes Home medication list reviewed: Yes (Protonix, Mounjaro) Allergy and home medication list: Allergies Penicillins Allergy (Severe, Verified 10/27/23 14:26) Respiratory Hives and Respiratory shrimp Allergy (Verified 10/27/23 14:26) Hives strawberry Allergy (Verified 10/27/23 14:26) Rash montelukast sodium * [From Singulair] Adverse Reaction (Mild, Verified 10/27/23 14:26) other Depression Review of Systems Review of systems same as previous: No (GERD) Physical Exam Vital signs obtained and entered by: JOSE GIBSON Blood Pressure: 132/76 Cuff size: regular (right arm) Heart Rate: 77 O2 Saturation: 95 Height: 5 ft 4 in Weight: 237 lb Weight change since last visit: 29 lbs loss Body Mass Index: 40.6 BMI Classification: Morbidly Obese Impression and Plan 1. Obstructive Sleep Apnea-Hypopnea Syndrome, mild, with good treatment compliance and good apnea control. On CPAP therapy, the patient has better sleep quality and is more rested overall. Patient states her other machine broke and so she ended up buying a [employer]Med Airsense 11. She likes her new machine. She is with [employer] for her supplies. Patient has significant improvement of their sleep apnea and is satisfied with current CPAP therapy. Patient denies problems with oral dryness, nasal congestion, epistaxis, skin irritation or aerophagia. We will follow-up with her next year. Patient's apnea severity and rationale for treatment to reduce apnea, improve sleep quality and reduce cardiovascular and cerebrovascular events was reviewed. I also reviewed the benefit of consistent device use of CPAP for hypertension, diabetes, gastric reflux, depression, anxiety and attention deficit. 2. Obesity, unspecified. Currently patients BMI is 40.6. She has lost weight. Obesity increases the risk of apnea, CPAP pressure requirements and overall health risks especially cardiovascular and diabetes. Thus patient is advised to continue to try to lose weight. * Continue auto CPAP pressure at 6-12 cmH2O * Update supply prescription * Notify me if snoring with mask or feeling that the pressure is too much or too little * Attempt to lose weight * Call this office if any problems using CPAP * Return for follow up in 12 months, or sooner if concerns arise Counseling Topics: Spare mask, Weight loss health impact Prescriptions: Device supplies Follow up with Sleep Care in: 1 year Visit Type: In Office Time Spent with Patient (minutes): 24 Provider Statement: I spent 100% of the Face to Face Visit with the patient with greater than 50% spent counseling the patient and coordination of care.
[2023-10-29 09:34] VITALS: BP 132/76; O2SAT 95
== END 2023-10-29 08:51 | disposition home or self-care (01) ==
LOC: SC 08:50
PROVIDERS: ATTEND Nurse Practitioner Family
DX: G47.33 Obstructive sleep apnea (adult) (pediatric) (principal); E66.01 Morbid (severe) obesity due to excess calories; Z68.41 Body mass index [BMI] 40.0-44.9, adult
CPT/HCPCS: 99212; 99213